=== PATIENT | female | born 1965 | race Caucasian/White ===

== ENCOUNTER 2021-01-08 11:48 | Inpatient (IN) | payer MEDICAID, SELFPAY ==
[2021-01-08] VITALS (15 sets, daily range): BP systolic 127–161; BP diastolic 72–93; PULSE 102–124; RESP 16–24; TEMP 36.2–37.6; O2SAT 93–98; BMI 22.4; BMI 22.8
--- NOTE | 2021-01-08 12:56 | CT_ITS ---
WS: [id number] CT ABDOMEN PELVIS TECHNIQUE: Contrast-enhanced CT of the abdomen and pelvis with coronal and sagittal reformatted image s. CLINICAL INFORMATION: anemia, hepatomegaly COMPARISON: None. DLP: 973.[address] scans at [facility] use at least one of these dose optimization techniques: automat ed exposure control; mA and/or kV adjustment per patient size (includes targeted exams where dose is matched to clinical indication); or iterative reconstruction. FINDINGS: Hepatomegaly. Innumerable heterogeneously enhancing metastatic lesions within both hepatic lobes. Mor e confluent lesions in the right hepatic lobe the largest measuring approximately 9.5 x 6.6 cm. Dorota l splenic vein. Proximal portal veins appear patent. Lymphadenopathy in the torito hepatis. A few of t he hepatic lesions demonstrate a few areas of calcification. Suspected metastatic lesions in both lung bases the largest in the left lower lobe measuring 8 mm. No rmal spleen. Normal GE junction. Pancreas appears normal. Normal caliber abdominal aorta. Aortic calc ification. Thickening of the left adrenal gland. Right adrenal gland appears normal. Normal renal par enchymal enhancement. No hydronephrosis. Dense sigmoid constipation. Constipation in the left splenic flexure and descending colon. Evidence o f prior subtotal colectomy. No evidence of high-grade small or large bowel obstruction. A few small p eriaortic lymph nodes. No pelvic or inguinal lymphadenopathy. Small amount of free fluid in the right lower pelvis. CT/CT abdomen pelvis w con* [id number] IMPRESSION: 1. Innumerable previously enhancing lesions in both hepatic lobes most consist ent with metastatic disease. Largest lesion right hepatic lobe measures approxi mately 9.5 x 6.6 cm. 2. Hepatomegaly. 3. Suspected metastatic nodules in both lung bases the largest measuring 8 mm left lower lobe laterally. 4. Prominent lymph nodes in the torito hepatis. 5. Thickening of the left adrenal gland. 6. Splenic flexure and left descending colon/sigmoid colon constipation. 7. Prior hysterectomy. 8. Evidence of prior subtotal colectomy. Notified Daneil Welch MD [facility] [place] at 01/08/2021 1:54 PM.
--- NOTE | 2021-01-08 12:57 | W.ED.RECABL ---
HPI - Recheck/Abnormal Lab/Rx General: Chief Complaint: Recheck/Abnormal Lab/Rx Stated Complaint: anemic, wanting blood transfusion Time Seen by Provider: 01/08/21 12:06 Source: patient, RN notes reviewed and old records reviewed Mode of arrival: ambulatory Limitations: no limitations History of Present Illness: HPI narrative: Patient is a 55-year-old female who does not obtain regular health care and presents to the emergency department with complaints of severe weakness, dyspnea on exertion, lack of energy. She was seen at [facility] 5 days ago and was diagnosed with anemia and apparently liver cancer at that time. Her hemoglobin was said to be low and wanted to transfuse her but the patient left AGAINST MEDICAL ADVICE because she said she had things to do. She went to her primary care provider today who advised that she come to the emergency department to be evaluated. The patient does not have a known history of hepatitis C or hepatitis B, however she has not been checked for these either. She said she used to drink a lot of alcohol when she was younger but she does not any longer. complaint: abnormal lab Initial visit (ago): day(s) (5) Associated symptoms: shortness of breath Review of Systems General: Reports: 10 or more systems reviewed and unremarkable except in HPI and below PFSH ED PFSH: Surgical History (Updated 01/08/21 @ 22:41 by Abdirahman Lima MD) History of appendectomy History of hysterectomy Social History (Reviewed 01/08/21 @ 12:59 by Daniel Welch MD, [facility] [place]) Smoking and tobacco status: current every day smoker Physical Exam Const: COMMON NORMALS: no acute distress, average body habitus, patient oriented x3, no limitations, healthy appearing, alert and well nourished HENMT: COMMON NORMALS: normocephalic, atraumatic and moist oral mucous membranes HEAD & SCALP: normocephalic and atraumatic Eye: COMMON NORMALS: Equal, round and reactive pupils present, EOMs intact bilaterally and conjunctivae normal CONJUNCTIVA: Yes conjunctivae normal PUPIL: Yes Equal, round and reactive pupils present Neck/C-Spine: COMMON NORMALS: no meningeal signs and no JVD Resp: COMMON NORMALS: normal respiratory effort, No retractions, No use of accessory muscles, clear to auscultation bilaterally and percussion normal AUSCULTATION: clear to auscultation bilaterally PERCUSSION: percussion normal Cardio: COMMON NORMALS: no JVD, regular rhythm, S1 normal heart sound present, S2 normal heart sound present, No gallops present (Cardio), No clicks present (Cardio), No rub (Cardio) and Peripheral pulses 2+ throughout RATE: tachycardic RHYTHM: regular rhythm HEART SOUNDS: S1 normal heart sound present, S2 normal heart sound present and Murmur heart sound present PERIPHERAL PULSES: Peripheral pulses 2+ throughout GI: COMMON NORMALS: Soft to palpation, non-tender, no masses and no bruits INSPECTION: Yes abdominal distension PALPATION: Yes Soft to palpation and Yes Hepatomegaly present Extremity: COMMON NORMALS: normal to inspection, full ROM, capillary refill normal and no calf tenderness GENERAL: Yes edema Neuro: COMMON NORMALS: patient oriented x3 SENSORIUM/ORIENTATION: Yes alert MENINGEAL SIGNS: Yes no meningeal signs Skin: COMMON NORMALS: no rashes or lesions noted, no wounds, turgor normal, no jaundice, no petechiae and no mottling GENERAL SKIN EXAM: no rashes or lesions noted and turgor normal Course Reevaluation(s): Reevaluation #1: Discussed her lab and imaging findings with her. Explained that she appears to be anemic heart failure. CT scan is also consistent with liver metastasis. She said she had a colectomy because they found a tumor on her colon. This was about 10 years ago and she has not had any follow-up colonoscopy. She is admitted to the hospital for further evaluation and management. She was started on blood transfusion while in the emergency department. She voiced understanding and is in agreement with the plan. Time: 14:20 Consultations: Consultation #1: Discussed the patient with Dr. Lima, hospitalist and he kindly accepted the patient to his service. Time: 14:17 Vital Signs: Vital signs: Vital Signs Temperature 98.8 F 01/08/21 22:46 Pulse Rate 107 H 01/08/21 22:46 Respiratory Rate 19 H 01/08/21 22:46 Blood Pressure 153/83 01/08/21 22:46 Pulse Oximetry 94 01/08/21 22:46 MDM - Recheck/Abnormal Lab/Rx MDM Narrative: Medical decision making narrative: 55-year-old female patient who is noncompliant with doctors visits presents to the emergency department with severe weakness, anemia, and she had severe anemia with hemoglobin of 5.1. She also appeared to be in anemic heart failure. CT scan of her abdomen also shows liver metastasis. Patient will be admitted to the hospital. She was started on blood transfusion while in the emergency department. Lab Data: Labs: Lab Results 01/08/21 01/08/21 01/08/21 Range/Units 11:13 13:00 13:00 WBC 19.6 H (4.0-10.0) 10^3/ uL RBC 2.67 L (4.1-5.3) 10^6/u L Hgb 5.1 L* (11.5-15.3) g/dL Hct 20.1 L* (37.0-47.0) % MCV 75.3 L (81-99) fL MCH 19.1 L (28.0-34.0) pg MCHC 25.4 L (30.0-36.0) g/dL RDW 19.4 H (12.1-15.1) % Plt Count 963 H (130-400) 10^3/c mm MPV 8.4 (7.4-10.4) fL Neut % (Auto) 83.0 % Lymph % (Auto) 8.1 % [place] % (Auto) 7.6 % Eos % (Auto) 0.1 % Baso % (Auto) 0.3 % Neut # (Auto) 16.29 H (1.8-7.7) 10^3/u L Lymph # (Auto) 1.6 (0.8-4.8) 10^3/u L [place] # (Auto) 1.5 H (0.2-0.9) 10^3/u L Eos # (Auto) 0.0 (0.0-0.8) 10^3/u L Baso # (Auto) 0.1 (0.0-0.1) 10^3/u L Nucleated RBC % (a uto) 0.3 % Nucleated RBCs # 0.1 /100WBC Sodium 127 L (136-145) mmol/L Potassium 4.4 (3.5-5.1) mmol/L Chloride 90 L (98-107) mmol/L Carbon Dioxide 24 (22-29) mmol/L Anion Gap 17.4 (5-19) BUN 15 (6-20) mg/dL Creatinine 0.4 L (0.5-0.9) mg/dL GFR Calculation 165.1 H (90-130) mL/min Glucose 116 H (65-115) mg/dL Calculated Osmolal ity 266 L (285-295) mOsm/k g Lactate (0.5-2.2) mmol/L Calcium 8.7 (8.5-10.5) mg/dL Total Bilirubin 0.3 (0.15-1.2) mg/dL AST 24 (0-32) U/L ALT 10 (0-33) U/L Alkaline Phosphata se 419 H (35-105) IU/L C-Reactive Protein 94.1 H (0.0-4.9) mg/L NT-Pro-B Natriuret Pep 4393 H (0-125) pg/mL Total Protein 6.1 L (6.6-8.7) g/dL Albumin 3.3 L (3.5-5.2) g/dL Globulin 2.8 (1.3-4.6) g/dL Lipase 14 (13-60) U/L Urine Color (Yellow) Urine Appearance (CLEAR) Urine pH (5-7) Ur Specific Gravit y (1.005-1.030) Urine Protein (Negative) Urine Glucose (UA) (Normal) Urine Ketones (Negative) Urine Blood (Negative) Urine Nitrate (Negative) Urine Bilirubin (Negative) Urine Urobilinogen (Negative) mg/dL Ur Leukocyte Reshma ase (Negative) Hepatitis A IgM Ab (Nonreactive) Hep Bs Antigen (Nonreactive) Hep Bs Antibody (11.5-1000) Hep B Core Total A b (Nonreactive) Hepatitis C Antibo dy (Nonreactive) Blood Type Rho(D) Type Antibody Screen Crossmatch 01/08/21 01/08/21 01/08/21 Range/Units 13:00 13:00 13:15 WBC (4.0-10.0) 10^3/ uL RBC (4.1-5.3) 10^6/u L Hgb (11.5-15.3) g/dL Hct (37.0-47.0) % MCV (81-99) fL MCH (28.0-34.0) pg MCHC (30.0-36.0) g/dL RDW (12.1-15.1) % Plt Count (130-400) 10^3/c mm MPV (7.4-10.4) fL Neut % (Auto) % Lymph % (Auto) % [place] % (Auto) % Eos % (Auto) % Baso % (Auto) % Neut # (Auto) (1.8-7.7) 10^3/u L Lymph # (Auto) (0.8-4.8) 10^3/u L [place] # (Auto) (0.2-0.9) 10^3/u L Eos # (Auto) (0.0-0.8) 10^3/u L Baso # (Auto) (0.0-0.1) 10^3/u L Nucleated RBC % (a uto) % Nucleated RBCs # /100WBC Sodium (136-145) mmol/L Potassium (3.5-5.1) mmol/L Chloride (98-107) mmol/L Carbon Dioxide (22-29) mmol/L Anion Gap (5-19) BUN (6-20) mg/dL Creatinine (0.5-0.9) mg/dL GFR Calculation (90-130) mL/min Glucose (65-115) mg/dL Calculated Osmolal ity (285-295) mOsm/k g Lactate 1.9 (0.5-2.2) mmol/L Calcium (8.5-10.5) mg/dL Total Bilirubin (0.15-1.2) mg/dL AST (0-32) U/L ALT (0-33) U/L Alkaline Phosphata se (35-105) IU/L C-Reactive Protein (0.0-4.9) mg/L NT-Pro-B Natriuret Pep (0-125) pg/mL Total Protein (6.6-8.7) g/dL Albumin (3.5-5.2) g/dL Globulin (1.3-4.6) g/dL Lipase (13-60) U/L Urine Color Yellow (Yellow) Urine Appearance Clear (CLEAR) Urine pH 5 (5-7) Ur Specific Gravit y 1.015 (1.005-1.030) Urine Protein Neg (Negative) Urine Glucose (UA) Norm (Normal) Urine Ketones Negative (Negative) Urine Blood Neg (Negative) Urine Nitrate Negative (Negative) Urine Bilirubin Neg (Negative) Urine Urobilinogen 1 H (Negative) mg/dL Ur Leukocyte Reshma ase Negative (Negative) Hepatitis A IgM Ab Non-reactive (Nonreactive) Hep Bs Antigen Non-reactive (Nonreactive) Hep Bs Antibody 3.5 L (11.5-1000) Hep B Core Total A b Non-reactive (Nonreactive) Hepatitis C Antibo dy Non-reactive (Nonreactive) Blood Type Rho(D) Type Antibody Screen Crossmatch 01/08/21 Range/Units 13:29 WBC (4.0-10.0) 10^3/ uL RBC (4.1-5.3) 10^6/u L Hgb (11.5-15.3) g/dL Hct (37.0-47.0) % MCV (81-99) fL MCH (28.0-34.0) pg MCHC (30.0-36.0) g/dL RDW (12.1-15.1) % Plt Count (130-400) 10^3/c mm MPV (7.4-10.4) fL Neut % (Auto) % Lymph % (Auto) % [place] % (Auto) % Eos % (Auto) % Baso % (Auto) % Neut # (Auto) (1.8-7.7) 10^3/u L Lymph # (Auto) (0.8-4.8) 10^3/u L [place] # (Auto) (0.2-0.9) 10^3/u L Eos # (Auto) (0.0-0.8) 10^3/u L Baso # (Auto) (0.0-0.1) 10^3/u L Nucleated RBC % (a uto) % Nucleated RBCs # /100WBC Sodium (136-145) mmol/L Potassium (3.5-5.1) mmol/L Chloride (98-107) mmol/L Carbon Dioxide (22-29) mmol/L Anion Gap (5-19) BUN (6-20) mg/dL Creatinine (0.5-0.9) mg/dL GFR Calculation (90-130) mL/min Glucose (65-115) mg/dL Calculated Osmolal ity (285-295) mOsm/k g Lactate (0.5-2.2) mmol/L Calcium (8.5-10.5) mg/dL Total Bilirubin (0.15-1.2) mg/dL AST (0-32) U/L ALT (0-33) U/L Alkaline Phosphata se (35-105) IU/L C-Reactive Protein (0.0-4.9) mg/L NT-Pro-B Natriuret Pep (0-125) pg/mL Total Protein (6.6-8.7) g/dL Albumin (3.5-5.2) g/dL Globulin (1.3-4.6) g/dL Lipase (13-60) U/L Urine Color (Yellow) Urine Appearance (CLEAR) Urine pH (5-7) Ur Specific Gravit y (1.005-1.030) Urine Protein (Negative) Urine Glucose (UA) (Normal) Urine Ketones (Negative) Urine Blood (Negative) Urine Nitrate (Negative) Urine Bilirubin (Negative) Urine Urobilinogen (Negative) mg/dL Ur Leukocyte Reshma ase (Negative) Hepatitis A IgM Ab (Nonreactive) Hep Bs Antigen (Nonreactive) Hep Bs Antibody (11.5-1000) Hep B Core Total A b (Nonreactive) Hepatitis C Antibo dy (Nonreactive) Blood Type O Positive Rho(D) Type Positive / 4+ Antibody Screen Negative Crossmatch See Detail Imaging Data^: CT Abd/Pel: Attestation: I personally reviewed and interpreted this imaging study as follows: Radiologist's impression: [address] [id number] Scan ReportSigned Patient: Edith Medina #: [id number]: [id number]#:[id number]/Sex: 55 / FADM Date: 01/08/21Loc: ERRoom/Bed:Attending Dr: Ordering Provider/Ordering MD: Daniel eWlch MD, [facility] [place] Date of Service: 01/08/21 Procedure(s): CT abdomen pelvis w con* [id number] Accession Number(s): [id number] Report Number: [id number] WS: [id number] CT ABDOMEN PELVIS TECHNIQUE: Contrast-enhanced CT of the abdomen and pelvis with coronal and sagittal reformatted images. CLINICAL INFORMATION: anemia, hepatomegaly COMPARISON: None. DLP: 973.[address] scans at [facility] use at least one of these dose optimization techniques: automated exposure control; mA and/or kV adjustment per patient size (includes targeted exams where dose is matched to clinical indication); or iterative reconstruction. FINDINGS: Hepatomegaly. Innumerable heterogeneously enhancing metastatic lesions within both hepatic lobes. More confluent lesions in the right hepatic lobe the largest measuring approximately 9.5 x 6.6 cm. Normal splenic vein. Proximal portal veins appear patent. Lymphadenopathy in the torito hepatis. A few of the hepatic lesions demonstrate a few areas of calcification. Suspected metastatic lesions in both lung bases the largest in the left lower lobe measuring 8 mm. Normal spleen. Normal GE junction. Pancreas appears normal. Normal caliber abdominal aorta. Aortic calcification. Thickening of the left adrenal gland. Right adrenal gland appears normal. Normal renal parenchymal enhancement. No hydronephrosis. Dense sigmoid constipation. Constipation in the left splenic flexure and descending colon. Evidence of prior subtotal colectomy. No evidence of high-grade small or large bowel obstruction. A few small periaortic lymph nodes. No pelvic or inguinal lymphadenopathy. Small amount of free fluid in the right lower pelvis. CT/CT abdomen pelvis w con* [id number] IMPRESSION: 1. Innumerable previously enhancing lesions in both hepatic lobes most consistent with metastatic disease. Largest lesion right hepatic lobe measures approximately 9.5 x 6.6 cm. 2. Hepatomegaly. 3. Suspected metastatic nodules in both lung bases the largest measuring 8 mm left lower lobe laterally. 4. Prominent lymph nodes in the torito hepatis. 5. Thickening of the left adrenal gland. 6. Splenic flexure and left descending colon/sigmoid colon constipation. 7. Prior hysterectomy. 8. Evidence of prior subtotal colectomy. Notified Daniel Welch MD [facility] [place] at 01/08/2021 1:54 PM. Dictated By:Yifan Powell MD Critical Care Time Critical Care Time: Critical Care Time: Yes Total Critical Care Time: 45 Attestation: This case had a high probability of a clinically significant, sudden, or life threatening deterioration of this patient's condition which required my full and direct attention, intervention and personal management. Discharge Plan Discharge Patient Disposition: Admitted As Inpatient Admit Provider: Abdirahman Lima Clinical Impression: Heart failure, Anemia, Liver metastasis Condition: Stable Coding Level of Care Code ED Herbicide Service Sales Representative for Chg Fwd Exam Comprehensive
[2021-01-08 13:09] LABS: Basophils # 0.1 10^3/uL (0.0-0.1); Basophils % 0.3 %; Eosinophils % 0.1 %; Lymphocytes # 1.6 10^3/uL (0.8-4.8); Lymphocytes % 8.1 %; Mean Corpuscular HGB Conc 25.4 g/dL (30.0-36.0); Mean Corpuscular Hemoglobin 19.1 pg (28.0-34.0); Mean Corpuscular Volume 75.3 fL (81-99); Mean Platelet Volume 8.4 fL (7.4-10.4); Monocytes # 1.5 10^3/uL (0.2-0.9); Monocytes % 7.6 %; Neutrophils # 16.29 10^3/uL (1.8-7.7); Nucleated Red Blood Cells # 0.1 /100WBC; Nucleated Red Blood Cells % 0.3 %; Platelet Count 963 10^3/cmm (130-400); Red Blood Count 2.67 10^6/uL (4.1-5.3); Red Cell Distribution Width 19.4 % (12.1-15.1); White Blood Count 19.6 10^3/uL (4.0-10.0)
--- NOTE | 2021-01-08 13:16 | PM.HP ---
Providers/Chief Complaint Admitting Physician: Abdirahman Lima Primary Care Provider: Luna Arevalo MD Chief Complaint: anemic, wanting blood transfusion History of Present Illness 55 y/o with past medical history of tobacco abuse, who presented to the ER with generalized weakness. This has been progressively worsening over the past week. Upon arrival patient was noted have a WBC of 19.6, hemoglobin of 5.1, hematocrit of 20.1 and platelet count of 963.Sodium 127, potassium 4.4, chloride 90, bicarb 24, BUN 15 and creatinine is 0.4. Lactic acid was 1.9. Calcium was 8.7. Alkaline phosphatase was elevated at 419. AST of 24, ALT of 10. CRP of 94.1. ProBNP was elevated at 4393. Lipase of 14.Hepatitis panel was found to be negative. Urinalysis did not show any evidence of acute infection. Patient denied having any recent dark stools. No prior bloody emesis. Denies unexplained weight loss. No prior history of malignancy. Imaging studies on arrivalIncluded CT abdomen pelvis which showed innumerable previously enhancing lesions in both hepatic lobes consistent for metastatic disease. Large lesion of the right hepatic lobe measured around 9.5 x 6.6 cm. Also noted to have suspected metastatic nodules in both lungs measuring up to 8 mm. Incidentally noted to have prior partial colectomy which patient was not aware of why. Started on transfusion and admitted to hospital. Discussed findings of CT and need for biopsy however patient refused. Stated she is only wanting transfusion and would follow up outpatient for work up. Review of Systems General: Reports: 10 or more systems reviewed and unremarkable except in HPI and below Medications/Allergies Home Medications Medication Instructions Recorded Confirmed Last Taken Type tramadol 50 mg tablet 50 mg PO Q6H PRN #4 tab 01/07/21 01/08/21 01/08/21 07:00 Rx ibuprofen 400 mg PO PRN 01/08/21 01/08/21 Unknown History Allergies Allergy/AdvReac Type Severity Reaction Status Date / Time No Known Allergies Allergy Verified 01/08/21 13:53 PFSH Acute PFSH: Surgical History (Updated 01/08/21 @ 22:41 by Abdirahman Lima MD) History of appendectomy History of hysterectomy Social History (Reviewed 01/08/21 @ 12:59 by Daniel Welch MD, [facility] [place]) Smoking and tobacco status: current every day smoker Vitals/I&O/Wt Last Vital Signs Temp 99.7 F H 01/08/21 20:31 Pulse 105 H 01/08/21 20:31 Resp 20 H 01/08/21 20:31 BP 151/84 01/08/21 20:31 Pulse Ox 94 01/08/21 19:20 01/08/21 01/08/21 01/08/21 06:59 14:59 22:59 Intake Total 350 / 350 Balance 350 / 350 Weight last 48 hrs Weight 56.699 kg Weight 55.792 kg Physical Exam Narrative: EXAM NARRATIVE: Alert awake and oriented x3 HEENT-grossly unremarkable CVS-regular rate rhythm Chest- nonlabored respiration Abdomen -nondistended Extremities-no edema Data : 01/08/21 13:00 01/08/21 13:00 A&P Assessment and plan (1) Anemia: Status: Acute Qualifiers: Anemia type: unspecified type Qualified Code(s): D64.9 - Anemia, unspecified (2) Liver metastasis: Status: Acute Additional A&P Information Symptomatic Anemia Hemoglobin 5.1 2 units of PRBCs transfused. Repeat H&H q.6 hours. Stool guaiac Protonix 40 mg b.i.d. Transfuse for hemoglobin less than 7 Metastatic disease with hepatic lesion Additionally with pulmonary nodules Will need biopsy Refused work up in patient Follow up appt with oncology scheduled Leukocytosis WBC 19.6 Afebrile No evidence of infectious process Possibly malignancy related Procalcitonin in am Will monitor off abx. Hyponatremia Suspected SIADH Repeat BMP in am GI ppx Protonix 40 mg BID DVT ppx SCDs only Attestations Medical Necessity Statement*: patient will likely require over 2 midnight stay in hospital for evaluation treatment of severe anemia and new metastatic disease. Time Spent in Patient Care: Greater than 35 minutes (>than 50% of time spent in counselling and/or direct pt care on unit). Coding Level of Care Code Acute Gymnasium Teacher for Chg Fwd Diagnoses Anemia D64.9 Anemia type: unspecified type Liver metastasis C78.7
[2021-01-08 13:23] LABS: Hematocrit 20.1 % (37.0-47.0); Hemoglobin 5.1 g/dL (11.5-15.3)
[2021-01-08] MEDS: iohexol 300 mg/mL 100 mL Btl IV (13:28)
[2021-01-08 13:29] LABS: Add Urine Microscopic? NO; Charge for UA Resulting for Rev
[2021-01-08 13:36] LABS: Alanine Aminotransferase 10 U/L (0-33); Albumin Level 3.3 g/dL (3.5-5.2); Alkaline Phosphatase 419 IU/L (35-105); Anion Gap 17.4 (5-19); Aspartate Amino Transferase 24 U/L (0-32); Blood Urea Nitrogen 15 mg/dL (6-20); C Reactive Protein 94.1 mg/L (0.0-4.9); Calcium 8.7 mg/dL (8.5-10.5); Carbon Dioxide 24 mmol/L (22-29); Chloride 90 mmol/L (98-107); Creatinine Clr Calc Pharmacy 129.8508; Globulin 2.8 g/dL (1.3-4.6); Glomerular Filtration Rate 165.1 mL/min (90-130); Glucose 116 mg/dL (65-115); Lipase 14 U/L (13-60); Osmolality Calculated 266 mOsm/kg (285-295); Potassium 4.4 mmol/L (3.5-5.1); Sodium 127 mmol/L (136-145); Total Bilirubin 0.3 mg/dL (0.15-1.2); Total Protein 6.1 g/dL (6.6-8.7)
[2021-01-08 13:37] LABS: Lactate (Lactic Acid level) 1.9 mmol/L (0.5-2.2)
[2021-01-08 13:40] LABS: Bilirubin Urine Neg (Negative); Blood Urine Neg (Negative); Glucose Urine UA Norm (Normal); Ketones Urine Negative (Negative); Leukocyte Esterase Urine Negative (Negative); Nitrate Urine Negative (Negative); Protein Urine Neg (Negative); Specific Gravity, Urine 1.015 (1.005-1.030); Urine Appearance Clear (CLEAR); Urine Color Yellow (Yellow); Urobilinogen Urine 1 mg/dL (Negative); pH Urine 5 (5-7)
[2021-01-08 13:51] LABS: Hepatitis A Antibody IgM Non-Reactive (Nonreactive); Hepatitis B Core AB, Total Non-Reactive (Nonreactive); Hepatitis B Surface AB 3.5 (11.5-1000); Hepatitis B Surface Antigen Non-Reactive (Nonreactive); Hepatitis C Virus Antibody Non-Reactive (Nonreactive)
[2021-01-08 14:57] LABS: NT Pro B Type Natriuretic Pept 4393 pg/mL (0-125)
--- NOTE | 2021-01-08 18:30 | PC.NURSE ---
report called to evin YIN
[2021-01-08] MEDS: sodium chloride 0.9% (100 ml) 100 ML 125 ML (23:07)
[2021-01-08] MEDS: pantoprazole 40 mg SDV IVP (23:23)
[2021-01-09] VITALS: BP 166/89; PULSE 103; RESP 18; TEMP 37.1; O2SAT 94
[2021-01-09] MEDS: nicotine 21 mg Patch 1 PATCH TRANSDERMA (00:38)
[2021-01-09 00:40] LABS: Hematocrit 26.9 % (37.0-47.0); Hemoglobin 7.5 g/dL (11.5-15.3)
[2021-01-09 04:05] VITALS: BP 163/94; PULSE 99; RESP 16; TEMP 36.9; O2SAT 94
[2021-01-09 07:22] VITALS: BP 163/94; PULSE 100; RESP 16; TEMP 36.9; O2SAT 99
--- NOTE | 2021-01-09 07:46 | PC.NURSE ---
Patient was at the desk demanding to leave the hospital AMA. I spoke with her in length about the state of her health and the risks of leaving the hospital AMA. I called and spoke with Dr. Lima and informed him of this. He states that she was adamant yesterday she was going to leave after her blood transfusion was complete and agreed to allow her to leave AMA after discussing the risks and benefits. I again discussed with her at length the risks of leaving AMA and she states she can't afford to stay another night. I offered to have a sales representative marine supplies from patient accounts to come and speak with her about her bill and she declines at this time and continues to adamantly request to leave AMA. I provided her with the AMA paper and read it verbatim and she signed it. IV was removed and was intact. I instructed patient to present to the ED if she experienced further issues. She verbalizes understanding. I informed Dr. Lima of d/c.
[2021-01-09 07:58] VITALS: BP 163/94; PULSE 100; RESP 16; TEMP 36.9; O2SAT 99
--- NOTE | 2021-01-09 15:53 | PM.DCS ---
Discharge Providers Date of Admission: 01/08/21 14:35 Date of Discharge: January 09, 2021 Attending Provider at Admission: Abdirahman Lima Attending Provider at Discharge: Abdirahman Lima Primary Care Provider: Luna Arevalo MD Diagnoses at Discharge Discharge Diagnosis (1) Anemia: Status: Acute Qualifiers: Anemia type: unspecified type Qualified Code(s): D64.9 - Anemia, unspecified (2) Liver metastasis: Status: Acute Reason for Visit Reason for Visit: anemic, wanting blood transfusion Hospital Course Hospital Course 55 y/o with past medical history of tobacco abuse, who presented to the ER with generalized weakness. This has been progressively worsening over the past week. Upon arrival patient was noted have a WBC of 19.6, hemoglobin of 5.1, hematocrit of 20.1 and platelet count of 963.Sodium 127, potassium 4.4, chloride 90, bicarb 24, BUN 15 and creatinine is 0.4. Lactic acid was 1.9. Calcium was 8.7. Alkaline phosphatase was elevated at 419. AST of 24, ALT of 10. CRP of 94.1. ProBNP was elevated at 4393. Lipase of 14.Hepatitis panel was found to be negative. Urinalysis did not show any evidence of acute infection. Patient denied having any recent dark stools. No prior bloody emesis. Denies unexplained weight loss. No prior history of malignancy. Imaging studies on arrivalIncluded CT abdomen pelvis which showed innumerable previously enhancing lesions in both hepatic lobes consistent for metastatic disease. Large lesion of the right hepatic lobe measured around 9.5 x 6.6 cm. Also noted to have suspected metastatic nodules in both lungs measuring up to 8 mm. Incidentally noted to have prior partial colectomy which patient was not aware of why. Started on transfusion and admitted to hospital. Discussed findings of CT and need for biopsy however patient refused. Stated she is only wanting transfusion and would follow up outpatient for work up.On January 09 patient left against medical advice. Refused any further workup. Verbalized understanding of risk of worsening and potentially . Physical Exam Narrative: EXAM NARRATIVE: Alert awake and oriented x3 HEENT-grossly unremarkable CVS-regular rate rhythm Chest- nonlabored respiration Abdomen -nondistended Extremities-no edema Discharge Data Data Completed and Pending: Completed Studies During Hospitalization Category Date Time Status CT abdomen pelvis w con* [id number] Stat Cat Scan 01/08/21 12:56 Completed Vitals: Last Vital Signs Temp 98.4 F 01/09/21 07:58 Pulse 100 01/09/21 07:58 Resp 16 01/09/21 07:58 BP 163/94 01/09/21 07:58 Pulse Ox 99 01/09/21 07:58 Discharge Plan Discharge Patient Disposition: Home Condition: Stable Prescriptions: No Action Protonix 40 mg tablet,delayed release (DR/EC) 40 mg PO DAILY Qty: 30 RF: 0 vancomycin 125 mg capsule 125 mg PO QID 10 Days Qty: 40 RF: 0 hydrocodone-acetaminophen 5-325 mg tablet 1 tab PO Q4H PRN (Reason: pain) Qty: 20 RF: 0 Referrals: Luna Arevalo MD [Primary Care Provider] - Patient Instructions: Opioid Safety Discharge Attestations Time Spent in Discharge Care*: greater than 30 min Specific Discharge Activities: Other discharge activites (optional): AMA Quality Metrics Clinical Quality Measures During this hospital stay, did patient experience: None Coding Level of Care Code Acute Chg FW DC note Diagnoses Anemia D64.9 Anemia type: unspecified type Liver metastasis C78.7
--- NOTE | 2021-01-13 08:33 | PC.RESP ---
SMOKING CESSATION INFORMATION SENT TO PATIENT.
== END 2021-01-09 07:59 | disposition left against medical advice (07) | DRG 812 ==
LOC: ER 15:58 → MEDSURG 17:37
PROVIDERS: Admitting Provider Hospitalist; Emergency Provider Family Medicine; PCP Family Medicine; Visit Provider Hospitalist
DX: D64.9 Anemia, unspecified (principal); C78.7 Secondary malignant neoplasm of liver and intrahepatic bile duct; E87.1 Hypo-osmolality and hyponatremia; R91.1 Solitary pulmonary nodule; I50.9 Heart failure, unspecified; D72.829 Elevated white blood cell count, unspecified; F17.200 Nicotine dependence, unspecified, uncomplicated; Z90.49 Acquired absence of other specified parts of digestive tract; Z90.710 Acquired absence of both cervix and uterus; Z53.29 Procedure and treatment not carried out because of patient's decision for other reasons
CPT/HCPCS: 36415; 36430; 74177; 80053; 81003; 83605; 83690; 83880; 85014; 85018; 85025; 86140; 86705; 86706; 86709; 86803; 86850; 86900; 86920; 87340; 99285; C9113; P9016; Q9967

== ENCOUNTER 2021-01-12 02:01 | Inpatient (IN) | payer MEDICAID, SELFPAY ==
[2021-01-12] VITALS (16 sets, daily range): BP systolic 99–138; BP diastolic 66–85; PULSE 98–113; RESP 18–25; TEMP 36.2–37.3; O2SAT 90–100; BMI 23.0
[2021-01-12 02:23] LABS: Basophils # 0.1 10^3/uL (0.0-0.1); Basophils % 0.4 %; Eosinophils % 0.3 %; Hematocrit 31.9 % (37.0-47.0); Lymphocytes % 7.7 %; Mean Corpuscular HGB Conc 28.2 g/dL (30.0-36.0); Mean Corpuscular Hemoglobin 21.8 pg (28.0-34.0); Mean Corpuscular Volume 77.4 fl (81-99); Mean Platelet Volume 8.1 fL (7.4-10.4); Monocytes # 0.9 10^3/uL (0.2-0.9); Monocytes % 7.2 %; Neutrophils # 10.95 10^3/uL (1.8-7.7); Neutrophils % 83.8 %; Nucleated Red Blood Cells % 0 %; Platelet Count 905 10^3/cmm (130-400); Red Blood Count 4.12 10^6/uL (4.1-5.3); White Blood Count 13.1 10^3/uL (4.0-10.0)
[2021-01-12] MEDS: ondansetron 2 mg/ML SDV 2 mL 4 MG IVP ×2 (02:34→12:12)
[2021-01-12] MEDS: HYDROmorphone 1 mg/mL INJ 1 mL IVP ×3 (02:34→06:57)
[2021-01-12] MEDS: sodium chloride 0.9% 1,000 ML 999 ML IV (02:36)
[2021-01-12 02:39] LABS: INR 1.06 (0.8-1.2)
[2021-01-12 02:40] LABS: Partial Thromboplastin Time 36.2 SECONDS (23.9-36.7)
[2021-01-12 02:43] LABS: Alanine Aminotransferase 19 U/L (0-33); Albumin Level 3.1 g/dL (3.5-5.2); Alcohol Level 25 mg/dL (0-10); Alkaline Phosphatase 417 IU/L (35-105); Anion Gap 18.1 (5-19); Aspartate Amino Transferase 42 U/L (0-32); Blood Urea Nitrogen 13 mg/dL (6-20); Calcium 8.9 mg/dL (8.5-10.5); Carbon Dioxide 23 mmol/L (22-29); Chloride 92 mmol/L (98-107); Globulin 3.5 g/dL (1.3-4.6); Glomerular Filtration Rate 165.1 mL/min (90-130); Glucose 91 mg/dL (65-115); Lipase 11 U/L (13-60); Magnesium 1.7 mg/dL (1.7-2.3); Osmolality Calculated 270 mOsm/kg (285-295); Potassium 3.1 mmol/L (3.5-5.1); Sodium 130 mmol/L (136-145); Total Bilirubin 0.4 mg/dL (0.15-1.2); Total Protein 6.6 g/dL (6.6-8.7)
[2021-01-12 02:44] LABS: Lactate (Lactic Acid level) 1.9 mmol/L (0.5-2.2)
[2021-01-12 02:50] LABS: Procalcitonin 0.47 ng/mL (0-0.5)
--- NOTE | 2021-01-12 02:56 | CTR_ITS ---
PROCEDURE INFORMATION: Exam: CT Abdomen And Pelvis With Contrast Exam date and time: 01/12/2021 2:56 AM Age: 55 years old Clinical indication: Abdominal pain; Localized; Prior surgery; Surgery date: 6+ months; Surgery type: Byst, appy; Patient HX: HX of liver mets C/O lower abd/pelvic pain w n/v/d; Additional info: Lower abd pain TECHNIQUE: Imaging protocol: Computed tomography of the abdomen and pelvis with contrast. Radiation optimization: All CT scans at this facility use at least one of these dose optimization techniques: automated exposure control; mA and/or kV adjustment per patient size (includes targeted exams where dose is matched to clinical indication); or iterative reconstruction. Contrast material: OMNI 300; Contrast volume: 75 ml; Contrast route: INTRAVENOUS (IV); COMPARISON: CT abdomen pelvis w con* [id number] 01/08/2021 1:21 PM RADIATION DOSE METRICS: Total DLP (mGy-cm): 991.43 FINDINGS: Lungs: Stable 8 mm left lower lobe nodule. Stable 8 mm right lower lobe nodule. Stable 4 mm left lower lobe nodule. Liver: Stable diffuse metastatic disease to the liver. Gallbladder and bile ducts: Vicarious excretion of contrast in the gallbladder. Pancreas: Normal. No ductal dilation. Spleen: Normal. No splenomegaly. Adrenal glands: 2 x 2.9 cm left adrenal nodule is grossly stable and likely represents metastatic disease. Kidneys and ureters: Normal. No hydronephrosis. Stomach and bowel: There has been a right hemicolectomy. There is thickening of multiple loops of small bowel concerning for enteritis. There are few loops of gas and fluid-filled small bowel with a balanced amount of gas and fluid in the colon. Appendix: No evidence of appendicitis. Intraperitoneal space: There is a small amount of ascites. Vasculature: Unremarkable. No abdominal aortic aneurysm. Lymph nodes: Unremarkable. No enlarged lymph nodes. Urinary bladder: Unremarkable as visualized. Reproductive: Unremarkable as visualized. Bones/joints: Unremarkable. No acute fracture. Soft tissues: 5.6 x 2.8 cm soft tissue mass in the right side of the pelvis, previously 4.[address]/CT abdomen pelvis w con* [id number] IMPRESSION: 1. Ileus. 2. There is thickening of multiple loops of small bowel concerning for enteritis. 3. Stable bilateral lower lobe lung nodules. 4. There is a small amount of ascites. 5. Stable to minimal enlargement of metastatic deposit in the right side of the pelvis. 6. Stable diffuse metastatic disease to the liver. Radiation Dose CTDIVOL = (mGy): DLP = 991.43 (mGy-cm)
[2021-01-12] MEDS: iohexol 300 mg/mL 100 mL Btl IV (03:18)
--- NOTE | 2021-01-12 03:19 | W.ED.ABDPA2 ---
HPI - Abdominal Pain General: Chief Complaint: Abdominal Pain Stated Complaint: Stomach Ache Time Seen by Provider: 01/12/21 02:13 History of Present Illness: HPI narrative: 55-year-old female with a recent diagnosis of metastatic liver cancer. She presents with lower abdominal pain, diarrhea, and nausea. She denies any fever. She notes that she has had the symptoms on and off for the last several weeks, but they became much worse tonight, and constant. MD elicited complaint: abdominal pain Pertinent past history: other Onset (ago): hour(s) Pain Consistency: constant Location: Diffuse Quality: cramping and stabbing Radiation: none Migration to: no migration Exacerbating factors: movement Relieving factors: nothing Associated Symptoms: Reports anorexia, change in stool character and nausea; Denies constipation, dyspepsia, fever(s), hematuria and poor appetite Review of Systems Const: Denies: fever(s) Card: Denies: chest pain or palpitations Resp: Denies: dyspnea GI: Reports: nausea and change in stool character; Denies: constipation : Denies: hematuria PFSH ED PFSH: Surgical History (Updated 01/08/21 @ 22:41 by Abdirahman Lima MD) History of appendectomy History of hysterectomy Social History Smoking and tobacco status: current every day smoker Physical Exam Const: GENERAL APPEARANCE: cooperative and ill appearing Chest: COMMONS NORMALS: normal inspection of the chest Cardio: RATE: bradycardic GI: COMMON NORMALS: Normal to inspection, nondistended, normoactive bowel sounds present AUSCULTATION: Yes normoactive bowel sounds PALPATION: Yes Tenderness to palpation present (GI) Course Consultations: Consultation #1: caterina Vital Signs: Vital signs: Vital Signs Respiratory Rate 22 H 01/12/21 04:50 MDM - Abdominal Pain MDM Narrative: Medical decision making narrative: 55-year-old female with known significant metastatic burden to the liver. She presents with diffuse lower abdominal pain, and some diarrhea. She had 2 mg of Dilaudid, and 8 mg of Zofran with some relief, but incomplete relief. She was admitted recently for transfusion, and work-up of her metastatic disease, but chose to leave after her transfusion. Current hemoglobin is 9. White blood cell count is 13. She has significant thrombocytosis of 900. Her potassium is 3.1 and is repleted orally. CT shows significant enteritis, with ileus. There is mild increase in her metastatic disease in the liver. She will be admitted for further investigation and treatment. Lab Data: Labs: Lab Results 01/12/21 01/12/21 01/12/21 Range/Units 02:13 02:13 02:13 WBC 13.1 H (4.0-10.0) 10^3/ uL RBC 4.12 (4.1-5.3) 10^6/u L Hgb 9.0 L (11.5-15.3) g/dL Hct 31.9 L (37.0-47.0) % MCV 77.4 L (81-99) fl MCH 21.8 L (28.0-34.0) pg MCHC 28.2 L (30.0-36.0) g/dL RDW 21.0 H (12.1-15.1) % Plt Count 905 H (130-400) 10^3/c mm MPV 8.1 (7.4-10.4) fL Neut % (Auto) 83.8 % Lymph % (Auto) 7.7 % Dixon % (Auto) 7.2 % Eos % (Auto) 0.3 % Baso % (Auto) 0.4 % Neut # (Auto) 10.95 H (1.8-7.7) 10^3/u L Lymph # (Auto) 1.0 (0.8-4.8) 10^3/u L Dixon # (Auto) 0.9 (0.2-0.9) 10^3/u L Eos # (Auto) 0.0 (0.0-0.8) 10^3/u L Baso # (Auto) 0.1 (0.0-0.1) 10^3/u L Nucleated RBC % (a uto) 0 % Nucleated RBCs # 0.0 /100WBC PT (12.1-14.9) SECO NDS INR (0.8-1.2) APTT (23.9-36.7) SECO NDS Sodium 130 L (136-145) mmol/L Potassium 3.1 L (3.5-5.1) mmol/L Chloride 92 L (98-107) mmol/L Carbon Dioxide 23 (22-29) mmol/L Anion Gap 18.1 (5-19) BUN 13 (6-20) mg/dL Creatinine 0.4 L (0.5-0.9) mg/dL GFR Calculation 165.1 H (90-130) mL/min Glucose 91 (65-115) mg/dL Calculated Osmolal ity 270 L (285-295) mOsm/k g Lactate (0.5-2.2) mmol/L Calcium 8.9 (8.5-10.5) mg/dL Magnesium 1.7 (1.7-2.3) mg/dL Total Bilirubin 0.4 (0.15-1.2) mg/dL AST 42 H (0-32) U/L ALT 19 (0-33) U/L Alkaline Phosphata se 417 H (35-105) IU/L C-Reactive Protein 237.0 H (0.0-4.9) mg/L Total Protein 6.6 (6.6-8.7) g/dL Albumin 3.1 L (3.5-5.2) g/dL Globulin 3.5 (1.3-4.6) g/dL Lipase 11 L (13-60) U/L Procalcitonin 0.47 (0-0.5) ng/mL Ethyl Alcohol 25 H (0-10) mg/dL Blood Type O Positive Rho(D) Type Positive / 4+ Antibody Screen Negative 01/12/21 01/12/21 Range/Units 02:22 02:22 WBC (4.0-10.0) 10^3/ uL RBC (4.1-5.3) 10^6/u L Hgb (11.5-15.3) g/dL Hct (37.0-47.0) % MCV (81-99) fl MCH (28.0-34.0) pg MCHC (30.0-36.0) g/dL RDW (12.1-15.1) % Plt Count (130-400) 10^3/c mm MPV (7.4-10.4) fL Neut % (Auto) % Lymph % (Auto) % Dixon % (Auto) % Eos % (Auto) % Baso % (Auto) % Neut # (Auto) (1.8-7.7) 10^3/u L Lymph # (Auto) (0.8-4.8) 10^3/u L Dixon # (Auto) (0.2-0.9) 10^3/u L Eos # (Auto) (0.0-0.8) 10^3/u L Baso # (Auto) (0.0-0.1) 10^3/u L Nucleated RBC % (a uto) % Nucleated RBCs # /100WBC PT 14.10 (12.1-14.9) SECO NDS INR 1.06 (0.8-1.2) APTT 36.2 (23.9-36.7) SECO NDS Sodium (136-145) mmol/L Potassium (3.5-5.1) mmol/L Chloride (98-107) mmol/L Carbon Dioxide (22-29) mmol/L Anion Gap (5-19) BUN (6-20) mg/dL Creatinine (0.5-0.9) mg/dL GFR Calculation (90-130) mL/min Glucose (65-115) mg/dL Calculated Osmolal ity (285-295) mOsm/k g Lactate 1.9 (0.5-2.2) mmol/L Calcium (8.5-10.5) mg/dL Magnesium (1.7-2.3) mg/dL Total Bilirubin (0.15-1.2) mg/dL AST (0-32) U/L ALT (0-33) U/L Alkaline Phosphata se (35-105) IU/L C-Reactive Protein (0.0-4.9) mg/L Total Protein (6.6-8.7) g/dL Albumin (3.5-5.2) g/dL Globulin (1.3-4.6) g/dL Lipase (13-60) U/L Procalcitonin (0-0.5) ng/mL Ethyl Alcohol (0-10) mg/dL Blood Type Rho(D) Type Antibody Screen Discharge Plan Discharge Admit Provider: Mary Grace Jasso Coding Level of Care Code ED Student Assistance Counselor for Chg Fwd Exam Expanded Problem Focused
[2021-01-12] MEDS: potassium chloride ER 20 mEq Tablet 40 MEQ PO (04:50)
[2021-01-12] MEDS: metroNIDAZOLE IV 500 MG/100 ML PREMIX 100 MG IV ×3 (06:35→23:21)
--- NOTE | 2021-01-12 09:01 | CTR_ITS ---
PROCEDURE INFORMATION: Exam: CTA Chest With Contrast Exam date and time: 01/12/2021 9:01 AM Age: 55 years old Clinical indication: Shortness of breath; Patient HX: Livers mets w unk primary C/O SOB TECHNIQUE: Imaging protocol: Computed tomographic angiography of the chest with contrast. 3D rendering (Not supervised by radiologist): MIP and/or 3D reconstructed images were created by the technologist. Radiation optimization: All CT scans at this facility use at least one of these dose optimization techniques: automated exposure control; mA and/or kV adjustment per patient size (includes targeted exams where dose is matched to clinical indication); or iterative reconstruction. Contrast material: OMNI 350; Contrast volume: 66 ml; Contrast route: INTRAVENOUS (IV); COMPARISON: CT abdomen pelvis w con* [id number] 01/12/2021 3:14 AM RADIATION DOSE METRICS: Total DLP (mGy-cm): 507.25 FINDINGS: Limitations: Multiple linear streak artifacts/beam hardening artifacts are present, overlying the central pulmonary arteries. Pulmonary arteries: Pulmonary arteries are well opacified. Pulmonary arteries are normal in caliber. No filling defects are demonstrated. No evidence of pulmonary embolism. Aorta: Mild atherosclerosis of the thoracic aorta. No aortic aneurysm or dissection. Lungs: Changes of centrilobular emphysema demonstrated. Noncalcified 4 mm right lower lobe pulmonary nodule, series 2, image 217. 4 mm nodule right lower lobe image 283. 3 mm nodule right upper lobe, image 282. 5 mm nodule right lower lobe image 303. 7 mm left lower lobe nodule, image 368. 4 mm nodule left upper lobe image 208. 4 mm nodule anterior left upper lobe image 139. No consolidative pulmonary infiltrates are noted. Mild dependent atelectasis at the right lung base. Pleural spaces: No pleural effusion or pneumothorax noted. Heart: No cardiomegaly. No pericardial effusion. Lymph nodes: Unremarkable. No enlarged lymph nodes. Liver: Innumerable, partially calcified low-density masses throughout the included portion of the liver, consistent with metastatic disease. Small amount of perihepatic ascites noted. Bones/joints: No fracture or other acute osseous abnormality. Soft tissues: The soft tissues appear unremarkable. CT/CT angio chest PE protcl [id number] IMPRESSION: 1. Multiple linear streak artifacts/beam hardening artifacts are present, overlying the central pulmonary arteries. 2. No evidence of pulmonary embolism. 3. Mild atherosclerosis of the thoracic aorta. No aortic aneurysm or dissection. 4. There are multiple noncalcified bilateral pulmonary nodules up to 7 mm in diameter, suspicious for pulmonary metastases. 5. Innumerable, partially calcified low-density masses throughout the included portion of the liver, consistent with metastatic disease. Small amount of perihepatic ascites noted. Radiation Dose CTDIVOL = (mGy): DLP = 507.25 (mGy-cm)
--- NOTE | 2021-01-12 09:01 | CTR_ITS ---
PROCEDURE INFORMATION: Exam: CT Head Without Contrast Exam date and time: 01/12/2021 9:01 AM Age: 55 years old Clinical indication: Patient HX: Liver mets unk primary C/O chronic dizziness; Additional info: Metastatic lesion in liver, and pelvis, primary unknown TECHNIQUE: Imaging protocol: Computed tomography of the head without contrast. Radiation optimization: All CT scans at this facility use at least one of these dose optimization techniques: automated exposure control; mA and/or kV adjustment per patient size (includes targeted exams where dose is matched to clinical indication); or iterative reconstruction. COMPARISON: No relevant prior studies available. RADIATION DOSE METRICS: Total DLP (mGy-cm): 836.56 FINDINGS: Brain: Mild cortical volume loss. Mild hypodensities in supratentorial periventricular and subcortical white matter, consistent with microangiopathy. No intracranial hemorrhage. Cerebral ventricles: No ventriculomegaly. Paranasal sinuses: Visualized sinuses are unremarkable. No fluid levels. Mastoid air cells: Visualized mastoid air cells are well aerated. Vasculature: No hyperdense artery. Bones/joints: Unremarkable. No acute fracture. Soft tissues: Unremarkable. CT/CT head wo con* [id number] IMPRESSION: 1. No acute intracranial abnormality. Radiation Dose CTDIVOL = (mGy): DLP = 836.56 (mGy-cm)
--- NOTE | 2021-01-12 09:06 | USCV_ITS ---
Edith Medina Age: 55 Gender: F : 1965 Exam Date: 01/12/2021 10:38 Ordering Phys: Oscar Knutson MD Technologist: Jailyn Bray Exam Location: [facility] [place]_ Indication: Calf pain HISTORY: Lower extremity pain. PROCEDURES: Comparison: none available. Venous duplex imaging was performed in bilateral lower extremities. The following venous structures were evaluated: common femoral vein, profunda vein, proximal portion of the greater saphenous vein, superficial femoral vein, and the popliteal vein. In addition, the posterior tibial and peroneal trunk were evaluated. Serial compression, augmentation maneuvers, and spectral Doppler flow evaluation were performed. FINDINGS: No evidence of DVT seen in any vessel visualized at this time. The veins were found to be easily compressible with spontaneous blood flow. Non pulsatile flow pattern. CONCLUSIONS No evidence of DVT in the above-mentioned identifiable veins. Dr Holly Bruce MD FAC (Electronically Signed) Final Date: 12 January 2021 14:45 S
[2021-01-12] MEDS: dextrose 5%-ns + KCl 20 20 MEQ/1,000 ML BAG 100 MEQ IV ×2 (09:55→21:06)
[2021-01-12] MEDS: pantoprazole 40 mg SDV IVP ×2 (10:08→21:07)
[2021-01-12] MEDS: aspirin 81 mg EC Tablet PO (10:09)
[2021-01-12] MEDS: ciprofloxacin 400 MG/200 ML PREMIX 200 MG IV ×2 (10:10→21:31)
[2021-01-12 10:11] LABS: Reticulocyte % 1.5 % (0.5-2.0)
[2021-01-12 10:31] LABS: Iron 6 ug/dL (37-145)
[2021-01-12 10:32] LABS: INR 1.04 (0.8-1.2)
[2021-01-12 10:42] LABS: CA 125 62.5 U/mL (0-35); Ferritin 86 ng/mL (15-150); Iron 8 ug/dL (37-145); NT Pro B Type Natriuretic Pept 2576 pg/mL (0-125); Percent Saturation 2.6 % (20-50); Thyroid Stimulating Hormone 6.05 uIU/mL (0.27-4.20); Total Iron Binding Capacity 303 mcg/dl; Unsaturated Iron Binding 295 ug/dL (112-347)
--- NOTE | 2021-01-12 11:14 | P.HP_ITS ---
Providers/Chief Complaint Admitting Physician: Mary Grace Jasso MD Primary Care Provider: Luna Arevalo MD Chief Complaint: Stomach Ache History of Present Illness Edith Medina is a 55 year old female with no reported past medical history, who presents to [facility] after leaving AGAINST MEDICAL ADVICE a few days ago, for lower abdominal pain, and feeling unwell. Patient was here on 01/08/2021, was found to have metastatic radiographic lesions in her liver, in the right side of her pelvis, also suspected metastatic nodules in both lungs, she is markedly anemic, hemoglobin 5, she received 2 units PRBC, she had thrombocytosis, however patient declined any discussions about her radiographic findings and left AGAINST MEDICAL ADVICE. Patient presents again, with c omplaints of lower abdominal pain, her last bowel movement was over 48 hours ago, no fevers, no chills, no cough, she is a smoker, no history of COPD, no known exposure to COVID-19, no diarrhea, abdominal pain is not in the lower abdomen, no dysuria, no hematuria, no flank pain, no nausea, no vomiting, no lightheaded, dizziness, no hematemesis, no hemoptysis, no bloody or black stools. Patient denies a history of breast cancer, no breast lumps or bumps, denies history of ovarian cancer, status post hysterectomy, she is a smoker, she had a hysterectomy, she also had a subtotal colectomy for a nodule that was found in the colon, which was in [facility], told to be benign. In the emergency room patient was found to have an ileus, with enteritis, she was kept n.p.o., received fluids, received antibiotic treatment, when I saw patient she was on CSU. Patient was complaining of lower abdominal pain, no nausea, no vomiting, she understands the importance of staying here in the hospital and have a full evaluation for her radiographic evidence of malignancy. I advised against leaving AGAINST MEDICAL ADVICE, the morbidity and mortality associated, she voiced understanding, all questions answered. Review of Systems Const: Reports: fatigue; Denies: fever(s) or malaise Card: Denies: chest pain or edema Resp: Reports: dyspnea and non-productive cough GI: Reports: abdominal pain; Denies: nausea, vomiting, hematemesis, coffee ground emesis, dysphagia, early satiety, diarrhea, constipation, hematochezia or melena : Denies: flank pain, difficulty voiding, dysuria or urinary frequency Musc: Denies: neck pain or back pain Skin/Breast: Denies: rash Neuro: Denies: headache(s) Endo: Denies: polyuria or polydipsia Carlos/Lymph: Denies: enlarged lymph nodes Medications/Allergies Home Medications Medication Instructions Recorded Confirmed Last Taken Type ibuprofen 400 mg PO DAILY PRN 01/08/21 01/12/21 Unknown History Allergies Allergy/AdvReac Type Severity Reaction Status Date / Time No Known Allergies Allergy Verified 01/08/21 13:53 PFSH Acute PFSH: Medical History (Updated 01/12/21 @ 11:25 by Oscar Knutson MD) No pertinent past medical history Surgical History (Updated 01/08/21 @ 22:41 by Abdirahman Lima MD) History of appendectomy History of hysterectomy Family History (Updated 01/12/21 @ 11:20 by Oscar Knutson MD) Other Diabetes Hypertension Social History (Updated 01/12/21 @ 11:20 by Oscar Knutson MD) Smoking and tobacco status: current every day smoker Alcohol intake: current Alcohol intake frequency: 0-2 Drinks per Day Substance/Drug Use: never Vitals/I&O/Wt Last Vital Signs Temp 98.2 F 01/12/21 07:32 Pulse 98 01/12/21 07:32 Resp 20 H 01/12/21 07:32 BP 99/72 01/12/21 07:32 Pulse Ox 96 01/12/21 07:32 01/11/21 01/12/21 01/12/21 22:59 06:59 14:59 Intake Total 1000 / 1000 Balance 1000 / 1000 Weight last 48 hrs Weight 56.824 kg Physical Exam Const: COMMON NORMALS: no acute distress and patient oriented x3 HENMT: COMMON NORMALS: normocephalic HEAD & SCALP: normocephalic Eye: COMMON NORMALS: Equal, round and reactive pupils present GENERAL EYE: appearance normal, both eyes and all related structures PUPIL: Yes Equal, round and reactive pupils present Neck/C-Spine: COMMON NORMALS: no lymphadenopathy THYROID: Thyroid normal Resp: COMMON NORMALS: normal respiratory effort, No retractions, No use of accessory muscles and clear to auscultation bilaterally AUSCULTATION: clear to auscultation bilaterally Cardio: COMMON NORMALS: regular rate, regular rhythm, S1 normal heart sound present, S2 normal heart sound present and No murmurs present (Cardio) RATE: regular rate RHYTHM: regular rhythm HEART SOUNDS: S1 normal heart sound present and S2 normal heart sound present GI: COMMON NORMALS: Soft to palpation INSPECTION: Yes normal to inspection AUSCULTATION: Yes Hypoactive bowel sounds present PALPATION: Yes Tenderness to palpation present (GI) Details: LLQ, RLQ, LUQ and RUQ, No Guarding due to palpation present (GI) and No Rigid due to palpation Extremity: COMMON NORMALS: no pedal edema Neuro: COMMON NORMALS: patient oriented x3 and CN's II-XII intact bilaterally Psych: COMMON NORMALS: mental status grossly normal, Normal thought process present and cooperative THOUGHT PROCESS: Normal thought process present Data : 01/12/21 02:13 01/12/21 02:13 Micro: Microbiology 01/12/21 02:22 Blood Culture - Preliminary Blood SPECIMEN COLLECTED A&P Assessment and plan (1) Malignant neoplasm metastatic to liver with unknown primary site: -CT scan of the abdomen pelvis shows: -Innumerable previously enhancing lesions in both hepatic lobes most consistent with metastatic disease. Largest lesion right hepatic lobe measures approximately 9.5 x 6.6 cm. -Prominent lymph nodes in the torito hepatis. - Suspected metastatic nodules in both lung bases the largest measuring 8 mm left lower lobe laterally. -Stable to minimal enlargement of metastatic deposit in the right side of the pelvis. -Primary is unknown -She is a smoker, has history of COPD -She does have a history of subtotal colectomy, for a nodular-like mass in her colon, which was found to be benign Plan: -CT angiogram of the chest as she has complaints of shortness of breath -CT of the head -Hemoccult stool -After further work-up, will discuss with interventional radiology about the best biopsy site -DNR/DNI -SCDs for DVT prophylaxis, currently on aspirin, pharmacologic contraindicated given anemia Status: Acute (2) Ileus: -N.p.o. -IV fluids -Pain control -Monitor electrolytes Status: Acute (3) Hyponatremia: -Likely secondary to dehydration -Continue IV fluids -However SIADH is certainly a possibility, will recheck sodium tomorrow, if serum sodium does not improve, then will do further work-up Status: Acute (4) Enteritis: -Chronic on Cipro and Flagyl Status: Acute (5) Iron deficiency anemia: -Has iron deficiency anemia -Hemoglobin is 9 -Certainly related to malignancy as above -However cannot rule out underlying GI bleed, start Protonix 40 IV twice daily, with Carafate, will monitor hemoglobin, Hemoccult stool -Currently no complaint of blood black stool, no hemodynamic compromise -Depending on work-up as above, she might require EGD and colonoscopy Status: Acute (6) Thrombocytosis: -Likely reactive thrombocytosis from malignancy, dehydration, enteritis -Currently on aspirin -Monitor for thrombosis Status: Acute (7) Alcohol abuse: -[facility] protocol Status: Acute Attestations Medical Necessity Statement*: Patient requires hospitalization, inpatient, greater than 2 minutes, for metastatic malignancy to liver, lung, right pelvis with unknown primary site, with enteritis, ileus, hyponatremia, anemia, thrombocytosis Coding Level of Care Code Acute Transportation Department Supervisor for [facility] Fwd Diagnoses Malignant neoplasm metastatic to liver with unknown primary site C78.7; C80.1 Ileus K56.7 Hyponatremia E87.1 Enteritis K52.9 Iron deficiency anemia D50.9 Thrombocytosis D47.3 Alcohol abuse F10.10
--- NOTE | 2021-01-12 12:00 | PC.NURSE ---
Patient's friend delivered suitcase to ER weekend receptionist. UC retrieved suitcase and left unopened with patient.
[2021-01-12] MEDS: morphine 4 mg/mL SDV 1 mL 2 MG IVP ×3 (12:13→21:06)
[2021-01-12 13:27] LABS: LAB Peripheral Smear Sent for Review
--- NOTE | 2021-01-12 13:50 | PC.NURSE ---
Admit Note Patient admitted to [[facility]] from [ER] via [carrier]. Covering service notified. Patient presents with [abdominal pain]. Orders reviewed & will continue to monitor. Patient and/or medical collections representative oriented to environment, equipment, and informed of the following as found in the admission booklet: patient rights & responsibilities, visitor policy, hand and respiratory hygiene practice. Other education includes: [oxygen safety, telemetry monitoring pain management options]. Patient and/or medical collections representative [states understanding].
[2021-01-12 16:55] LABS: Bacteria Urine TRACE /hpf; Bilirubin Urine Neg (Negative); Blood Urine Neg (Negative); Glucose Urine UA Norm (Normal); Ketones Urine Negative (Negative); Leukocyte Esterase Urine Negative (Negative); Mucus Urine TRACE /hpf; Nitrate Urine Negative (Negative); Protein Urine 1+ (Negative); Specific Gravity, Urine 1.005 (1.005-1.030); Squamous Epithelial Cell Urine 15-25 /hpf (0-5); Urine Appearance SL Hazy (CLEAR); Urine Color Dark Yellow (Yellow); Urobilinogen Urine Norm (Negative); WBC Urine RARE /hpf (0-5); pH Urine 5 (5-7)
[2021-01-12 16:56] LABS: Add Urine Culture? No
[2021-01-12 16:57] LABS: Amphetamines Screen Urine Negative (Negative); Barbiturates Screen Urine Negative (Negative); Benzodiazepines Screen Urine Negative (Negative); Cocaine Screen Urine Negative (Negative); Opiate Screen Urine Positive (Negative); PCP Screen Urine Negative (Negative); THC Screen Urine Negative (Negative)
[2021-01-12] MEDS: iohexol 350 mg/mL 100 mL Btl IV (18:49)
--- NOTE | 2021-01-12 19:40 | PC.NURSE ---
Shift Note Frequent safety and comfort rounds continue. Orders and/or nursing care completed as indicated. Patient monitored for response to intervention and treatment(pain medication). Education provided includes[morphine, IVFs, telemetry]. Patient and/or entry level sales representative [states understanding]. Will continue to monitor.
--- NOTE | 2021-01-12 20:47 | PC.NURSE ---
Patient arrived to [facility] floor at 2009. Patient complains of abdominal discomfort. Physical assessment compleat. Vitals WNL will continue to monitor.
[2021-01-13] VITALS (9 sets, daily range): BP systolic 130–168; BP diastolic 65–86; PULSE 104–120; RESP 15–18; TEMP 37.1–37.9; O2SAT 90–92
[2021-01-13] MEDS: morphine 4 mg/mL SDV 1 mL 2 MG IVP ×2 (03:56→09:00)
[2021-01-13 05:33] LABS: Basophils # 0.1 10^3/uL (0.0-0.1); Basophils % 0.4 %; Eosinophils # 0.1 10^3/uL (0.0-0.8); Eosinophils % 0.4 %; Hematocrit 27.6 % (37.0-47.0); Hemoglobin 7.5 g/dL (11.5-15.3); Lymphocytes # 0.5 10^3/uL (0.8-4.8); Lymphocytes % 3.2 %; Mean Corpuscular HGB Conc 27.2 g/dL (30.0-36.0); Mean Corpuscular Hemoglobin 21.8 pg (28.0-34.0); Mean Corpuscular Volume 80.2 fl (81-99); Mean Platelet Volume 8.3 fL (7.4-10.4); Monocytes # 1.3 10^3/uL (0.2-0.9); Monocytes % 8.3 %; Neutrophils # 13.89 10^3/uL (1.8-7.7); Neutrophils % 86.8 %; Nucleated Red Blood Cells % 0 %; Platelet Count 753 10^3/cmm (130-400); Red Blood Count 3.44 10^6/uL (4.1-5.3); Red Cell Distribution Width 21.2 % (12.1-15.1)
[2021-01-13 05:45] LABS: INR 1.15 (0.8-1.2)
[2021-01-13] MEDS: metroNIDAZOLE IV 500 MG/100 ML PREMIX 100 MG IV ×3 (05:55→21:33)
[2021-01-13 05:56] LABS: Alanine Aminotransferase 17 U/L (0-33); Albumin Level 2.9 g/dL (3.5-5.2); Alkaline Phosphatase 313 IU/L (35-105); Anion Gap 14.5 (5-19); Aspartate Amino Transferase 45 U/L (0-32); Blood Urea Nitrogen 16 mg/dL (6-20); Calcium 8.8 mg/dL (8.5-10.5); Carbon Dioxide 25 mmol/L (22-29); Chloride 98 mmol/L (98-107); Globulin 3.6 g/dL (1.3-4.6); Glomerular Filtration Rate 127.6 mL/min (90-130); Glucose 94 mg/dL (65-115); Magnesium 1.9 mg/dL (1.7-2.3); Osmolality Calculated 277 mOsm/kg (285-295); Phosphorus 3.4 mg/dL (2.5-4.5); Potassium 4.5 mmol/L (3.5-5.1); Sodium 133 mmol/L (136-145); Total Bilirubin 0.4 mg/dL (0.15-1.2); Total Protein 6.5 g/dL (6.6-8.7)
[2021-01-13 05:59] LABS: Lactate (Lactic Acid level) 1.1 mmol/L (0.5-2.2)
--- NOTE | 2021-01-13 06:00 | XRR_ITS ---
PROCEDURE INFORMATION: Exam: XR Abdomen Exam date and time: 01/13/2021 6:00 AM Age: 55 years old Clinical indication: Condition or disease; Intestinal condition; Other: Abdominal ileus TECHNIQUE: Imaging protocol: XR of the abdomen. Views: Frontal supine view of the abdomen. 1 View. Total images: 1 COMPARISON: CT abdomen pelvis w con* [id number] 01/12/2021 3:14 AM FINDINGS: Gastrointestinal tract: Bowel gas pattern is mildly distended but nonobstructive. Organs: Urinary contrast material present at the time of imaging. Prominent liver shadow. Vasculature: Incidental phleboliths noted. Bones/joints: Osseous structures are unchanged from the prior exam. Other findings: Moderate stool burden. XR/XR KUB portable [id number] IMPRESSION: 1. Bowel gas pattern is mildly distended but nonobstructive. 2. Moderate stool burden.
[2021-01-13 06:10] LABS: NT Pro B Type Natriuretic Pept 1505 pg/mL (0-125); Procalcitonin 1.79 ng/mL (0-0.5)
[2021-01-13] MEDS: dextrose 5%-ns + KCl 20 20 MEQ/1,000 ML BAG 100 MEQ IV (06:16)
[2021-01-13 06:21] LABS: Creatine Phosphokinase 158 U/L (26-192); Ferritin 175 ng/mL (15-150)
[2021-01-13 06:33] LABS: C Reactive Protein 408.5 mg/L (0.0-4.9)
[2021-01-13] MEDS: thiamine 100 mg Tablet PO (08:47)
[2021-01-13] MEDS: pantoprazole 40 mg SDV IVP ×2 (08:47→20:15)
[2021-01-13] MEDS: multivitamin therapeutic Tablet 1 TAB PO (08:47)
[2021-01-13] MEDS: ciprofloxacin 400 MG/200 ML PREMIX 200 MG IV ×2 (08:47→20:13)
[2021-01-13] MEDS: folic acid 1 mg Tablet PO (08:47)
--- NOTE | 2021-01-13 09:52 | PC.CHAP ---
Pastoral Care Encounter/Spiritual Assessment Type of Contact [] Declined electrician substation visit [] Patient/Family/Request visit [] Outpatient visit [] Follow-up visit [] Physician referral [] Code/Alert [x] Routine visit [] Staff referral [] Actively dying [] Patient sleeping [] Family support [] [] Out of room [] Palliative care [] [] Receiving care in room [] Pre-surgical visit [] Trauma [] Long length of stay [] ICU visit [] Other: Relational/Emotional Strength [] Patient feels connected with others/family/visitors/staff []x Distress [] Loneliness/isolation [] Abandonment Spirituality of Patient [x] Person of Jaqueline [] Attends Amish of their Jaqueline [x] Believes in Prayer [] Reads Bible or Episcopal materials [] There are Spiritual issues to be addressed Commercial Housekeeper Interventions [x] Prayer [] Active listening [] Non-anxious presence [] Spiritual/emotional support [] Crisis/trauma care [] Spiritual counseling [] Bereavement support [] Provided bereavement packet [] Provided Bible/devotional materials [] Provided toy/stuffed animal, coloring book to patient or family member [] Provided Communion [] Anointing/Musella [] Salvation [x] Completed spiritual assessment [] Other: Impact on Illness or Injury [] Angry [x] Fearful [] Anxious [] Often cries [] Exhaustion [] Unable to work [] Unable to attend orthodox [] Unable to walk/stand [] Unable to read [] Unable to drive [] Unable to eat/drink [] Unable to sleep [] Unable to be with family [] Patient intubated [] Other: Summary Time spent with patient 10 minm
--- NOTE | 2021-01-13 12:23 | PM.PN ---
Subjective Subjective: Interval history: Edith reports she feels little bit better. Is passing gas. Wants to try to drink a little bit. Not nauseous. Reports she had a bowel movement. Medications: Reviewed: Yes Vitals/I&O/Wt Last Vital Signs Temp 99.5 F 01/13/21 08:00 Pulse 105 H 01/13/21 08:00 Resp 16 01/13/21 09:00 BP 143/65 01/13/21 08:00 Pulse Ox 92 01/13/21 08:00 01/12/21 01/13/21 01/13/21 22:59 06:59 14:59 Intake Total 1500 / 1500 1200 / 2700 200 / 200 Balance 1500 / 1500 1200 / 2700 200 / 200 Weight last 48 hrs Weight 56.699 kg Weight 56.824 kg Physical Exam Narrative: EXAM NARRATIVE: General exam no apparent distress Neck is supple no lymphadenopathy thyromegaly Cardiovascular regular rate and rhythm, borderline tachycardic, no murmur Lungs clear Abdomen slight tenderness. Positive bowel sounds. exam is deferred Extremities no cyanosis clubbing or edema, cap refill brisk Data : 01/13/21 05:17 01/13/21 05:17 Micro: Microbiology 01/12/21 02:22 Blood Culture - Preliminary Blood NEGATIVE TO DATE A&P Assessment and plan (1) Malignant neoplasm metastatic to liver with unknown primary site: Suspicious for colon cancer with metastasis Patient reports previous colectomy for nodular mass in: 12 years ago. Reports no colonoscopy since then. CT indicates possible pulmonic spread as well, with enlarged lymph nodes noted in the abdomen. Easiest site to reach is multiple liver nodules/masses. I have reached out to oncology as well as interventional radiology. Planning for ultrasound-guided liver biopsy of an area of metastasis on Wednesday. Will hold aspirin. CTA performed secondary to shortness of breath, no pulmonary embolism. CT head no mass. Venous duplex no DVT. KUB this morning no evidence of obstruction Initiate clear liquids, possibly advance to full liquids later today. Add hydrocodone for pain Discussed possibility of colonoscopy but at this point patient wants to avoid. Status: Acute (2) Ileus: Clinically resolving Status: Acute (3) Hyponatremia: Resolving Reduce fluids Status: Acute (4) Enteritis: Continue Cipro and Flagyl C. difficile toxin, stool culture Status: Acute (5) Iron deficiency anemia: Iron deficiency anemia, likely related to malignancy Continue Protonix Await stool Hemoccult Iron transfusion Status: Acute (6) Thrombocytosis: Reactive Status: Acute (7) Alcohol abuse: [facility] protocol Status: Acute Attestations Medical Necessity Statement*: Needs continued hospitalization for IV antibiotics for enteritis while diet is increased. Will also need liver biopsy for work-up of probable metastatic malignancy Coding Level of Care Code Acute Planting Material Unloader for [facility] Fwd Diagnoses Malignant neoplasm metastatic to liver with unknown primary site C78.7; C80.1 Ileus K56.7 Hyponatremia E87.1 Enteritis K52.9 Iron deficiency anemia D50.9 Thrombocytosis D47.3 Alcohol abuse F10.10
[2021-01-13] MEDS: dextrose 5%-ns + KCl 20 20 MEQ/1,000 ML BAG 50 MEQ IV (17:46)
--- NOTE | 2021-01-13 19:31 | PC.NURSE ---
Patient refuses to wear tele. She states the doctor is the one that took it off and I don't need it.
[2021-01-14] VITALS (8 sets, daily range): BP systolic 148–164; BP diastolic 79–93; PULSE 70–108; RESP 12–18; TEMP 36.6–37.4; O2SAT 90–94
[2021-01-14] MEDS: morphine 4 mg/mL SDV 1 mL 2 MG IVP (03:56)
[2021-01-14 04:20] LABS: Basophils # 0.1 10^3/uL (0.0-0.1); Basophils % 0.3 %; Eosinophils # 0.1 10^3/uL (0.0-0.8); Eosinophils % 0.3 %; Hematocrit 28.5 % (37.0-47.0); Hemoglobin 7.6 g/dL (11.5-15.3); Lymphocytes # 0.8 10^3/uL (0.8-4.8); Lymphocytes % 3.4 %; Mean Corpuscular HGB Conc 26.7 g/dL (30.0-36.0); Mean Corpuscular Hemoglobin 21.5 pg (28.0-34.0); Mean Corpuscular Volume 80.7 fl (81-99); Mean Platelet Volume 8.6 fL (7.4-10.4); Monocytes # 1.8 10^3/uL (0.2-0.9); Monocytes % 7.8 %; Neutrophils # 20.39 10^3/uL (1.8-7.7); Nucleated Red Blood Cells % 0 %; Platelet Count 842 10^3/cmm (130-400); Red Blood Count 3.53 10^6/uL (4.1-5.3); Red Cell Distribution Width 21.1 % (12.1-15.1); White Blood Count 23.4 10^3/uL (4.0-10.0)
[2021-01-14 04:51] LABS: Alanine Aminotransferase 14 U/L (0-33); Albumin Level 2.6 g/dL (3.5-5.2); Alkaline Phosphatase 330 IU/L (35-105); Anion Gap 15.4 (5-19); Aspartate Amino Transferase 36 U/L (0-32); Blood Urea Nitrogen 11 mg/dL (6-20); Calcium 8.7 mg/dL (8.5-10.5); Carbon Dioxide 23 mmol/L (22-29); Chloride 96 mmol/L (98-107); Globulin 3.9 g/dL (1.3-4.6); Glomerular Filtration Rate 165.1 mL/min (90-130); Glucose 105 mg/dL (65-115); Magnesium 1.9 mg/dL (1.7-2.3); Osmolality Calculated 270 mOsm/kg (285-295); Potassium 4.4 mmol/L (3.5-5.1); Sodium 130 mmol/L (136-145); Total Bilirubin 0.6 mg/dL (0.15-1.2); Total Protein 6.5 g/dL (6.6-8.7)
[2021-01-14] MEDS: metroNIDAZOLE IV 500 MG/100 ML PREMIX 100 MG IV ×4 (05:52→19:40)
[2021-01-14] MEDS: thiamine 100 mg Tablet PO (07:53)
[2021-01-14] MEDS: pantoprazole 40 mg SDV IVP ×2 (07:53→20:37)
[2021-01-14] MEDS: multivitamin therapeutic Tablet 1 TAB PO (07:53)
[2021-01-14] MEDS: folic acid 1 mg Tablet PO (07:53)
[2021-01-14] MEDS: HYDROcodone-acetaminophen 5-325 mg Tablet 1 TAB PO ×3 (07:53→19:36)
[2021-01-14] MEDS: ciprofloxacin 400 MG/200 ML PREMIX 200 MG IV ×2 (07:54→20:37)
[2021-01-14] MEDS: polyethylene glycol 3350 Pkt 17 gm PO ×2 (09:11→17:26)
[2021-01-14] MEDS: docusate sodium 100 mg Capsule PO ×2 (09:11→17:26)
--- NOTE | 2021-01-14 10:19 | PM.PN ---
Subjective Subjective: Interval history: Edith seemed upset this morning. She states she is still having some abdominal discomfort, below her umbilicus. It is not a lot better, nor is it worse. She wants her antibiotic changed as she has not gotten better as expected. She denies having a bowel movement besides the one yesterday morning. She states it was not diarrhea. It was not retained for testing. She has been tolerating a full liquid diet, with no nausea, worsening of the pain, or vomiting. She said several times during my interview her with her this morning she was thinking about leaving against advice. Her daughter then called during my visit, and this seemed to calm her. I ask if it was okay if I gave her daughter a call to inform her of the testing and the plan and the patient adamantly reported to me at that time she did not want me talking to her daughter. Medications: Reviewed: Yes Vitals/I&O/Wt Last Vital Signs Temp 98.6 F 01/14/21 07:49 Pulse 70 01/14/21 09:15 Resp 18 01/14/21 07:49 BP 150/84 01/14/21 07:49 Pulse Ox 94 01/14/21 09:15 01/13/21 01/14/21 01/14/21 22:59 06:59 14:59 Intake Total 1400 / 1600 660 / 660 Balance 1400 / 1600 660 / 660 Weight last 48 hrs Weight 56.699 kg Physical Exam Narrative: EXAM NARRATIVE: General exam no apparent distress Neck is supple no lymphadenopathy thyromegaly Cardiovascular regular rate and rhythm, borderline tachycardic, no murmur Lungs clear Abdomen slight tenderness. Positive bowel sounds. Tenderness is below the umbilicus bilaterally. Liver is enlarged and irregular. exam is deferred Extremities no cyanosis clubbing or edema, cap refill brisk Data : 01/14/21 03:59 01/14/21 03:59 Micro: Microbiology 01/12/21 16:00 Urine Culture - Final Urine,Voided A&P Assessment and plan (1) Malignant neoplasm metastatic to liver with unknown primary site: Suspicious for colon cancer with metastasis Patient reports previous colectomy for nodular mass in: 12 years ago. Reports no colonoscopy since then. CT indicates possible pulmonic spread as well, with enlarged lymph nodes noted in the abdomen. Easiest site to reach is multiple liver nodules/masses. I have reached out to oncology as well as interventional radiology. Planning for ultrasound-guided liver biopsy of an area of metastasis on Wednesday. Will hold aspirin. CTA performed secondary to shortness of breath, no pulmonary embolism. CT head no mass. Venous duplex no DVT. KUB this morning no evidence of obstruction. Some evidence for constipation Continue full liquids Continue hydrocodone for pain, morphine for breakthrough As no more bowel movements add Colace, MiraLAX. Dulcolax suppository as well. I am hoping treatment of constipation will decrease pain Discussed possibility of colonoscopy but at this point patient wants to avoid. Status: Acute (2) Ileus: Clinically resolving Status: Acute (3) Hyponatremia: Stable Status: Acute (4) Enteritis: Continue Cipro and Flagyl White blood cell count increased. No fever noted. Awaiting stool studies. May be secondary to constipation. She does not have tenderness over her entire abdomen to suggest peritonitis. Ascites was present on CT, but minimal amount not easily accessible. Status: Acute (5) Iron deficiency anemia: Iron deficiency anemia, likely related to malignancy Continue Protonix Await stool Hemoccult Hemoglobin now stable Status: Acute (6) Thrombocytosis: Reactive Status: Acute (7) Alcohol abuse: [facility] protocol Status: Acute Attestations Medical Necessity Statement*: Needs continued hospitalization for treatment of constipation, abdominal discomfort, possible enteritis, and arrangement for biopsy for malignancy. Coding Level of Care Code Acute Bad Cloth Checker for [facility] Fwd Diagnoses Malignant neoplasm metastatic to liver with unknown primary site C78.7; C80.1 Ileus K56.7 Hyponatremia E87.1 Enteritis K52.9 Iron deficiency anemia D50.9 Thrombocytosis D47.3 Alcohol abuse F10.10
[2021-01-14] MEDS: bisacodyl 10 mg Supp PR (15:15)
[2021-01-14] MEDS: dextrose 5%-ns + KCl 20 20 MEQ/1,000 ML BAG 50 MEQ IV (18:09)
[2021-01-15] VITALS (16 sets, daily range): BP systolic 147–172; BP diastolic 84–105; PULSE 83–104; RESP 16–20; TEMP 36.3–37.2; O2SAT 91–100
[2021-01-15] MEDS: metroNIDAZOLE IV 500 MG/100 ML PREMIX 100 MG IV ×2 (01:27→08:24)
[2021-01-15 05:53] LABS: Basophils % 0.1 %; Eosinophils # 0.1 10^3/uL (0.0-0.8); Eosinophils % 0.6 %; Hematocrit 28.7 % (37.0-47.0); Hemoglobin 7.8 g/dL (11.5-15.3); Lymphocytes # 0.7 10^3/uL (0.8-4.8); Mean Corpuscular HGB Conc 27.2 g/dL (30.0-36.0); Mean Corpuscular Hemoglobin 21.8 pg (28.0-34.0); Mean Corpuscular Volume 80.2 fl (81-99); Mean Platelet Volume 8.4 fL (7.4-10.4); Monocytes # 1.9 10^3/uL (0.2-0.9); Monocytes % 8.5 %; Neutrophils # 18.93 10^3/uL (1.8-7.7); Neutrophils % 85.7 %; Nucleated Red Blood Cells % 0 %; Platelet Count 788 10^3/cmm (130-400); Red Blood Count 3.58 10^6/uL (4.1-5.3); Red Cell Distribution Width 20.7 % (12.1-15.1); White Blood Count 22.1 10^3/uL (4.0-10.0)
[2021-01-15 06:16] LABS: Alanine Aminotransferase 15 U/L (0-33); Albumin Level 2.6 g/dL (3.5-5.2); Alkaline Phosphatase 480 IU/L (35-105); Anion Gap 14.8 (5-19); Aspartate Amino Transferase 31 U/L (0-32); Blood Urea Nitrogen 8 mg/dL (6-20); Calcium 8.7 mg/dL (8.5-10.5); Carbon Dioxide 25 mmol/L (22-29); Chloride 93 mmol/L (98-107); Globulin 3.9 g/dL (1.3-4.6); Glomerular Filtration Rate 230.1 mL/min (90-130); Glucose 87 mg/dL (65-115); Magnesium 1.7 mg/dL (1.7-2.3); Osmolality Calculated 266 mOsm/kg (285-295); Potassium 3.8 mmol/L (3.5-5.1); Sodium 129 mmol/L (136-145); Total Protein 6.5 g/dL (6.6-8.7)
[2021-01-15] MEDS: sodium chloride 0.9% 1,000 ML 30 ML IV (06:55)
--- NOTE | 2021-01-15 07:00 | US_ITS ---
WS: [id number] ULTRASOUND-GUIDED LIVER BIOPSY HISTORY: liver masses, metastatic disease to the liver of unknown etiology. Procedure, risks, and complications have been explained to the patient. Consent is obtained. Patient recently diagnosed with C. difficile. This was discussed with the patient and Dr. Gilson holcomb ded to go ahead with the liver biopsy. No ascites is evident. Patient is not complaining of any addit ional abdominal pain. Prior imaging studies are reviewed. Skin is cleansed with ChloraPrep and then anesthetized with 1% buffered lidocaine. Core biopsy is per formed with an 18 gauge Achieve needle. Specimen is placed within formalin. No complications encounte red. US/US biopsy liver [id number] IMPRESSION: Uncomplicated ultrasound-guided liver biopsy of metastatic lesions. Final patho logy results are pending.
[2021-01-15] MEDS: fentaNYL 50 mcg/mL INJ 2mL 25 MCG IVP (07:21)
[2021-01-15] MEDS: midazolam 1 mg/mL INJ 2 mL IVP (07:21)
[2021-01-15] MEDS: polyethylene glycol 3350 Pkt 17 gm PO (08:23)
[2021-01-15] MEDS: pantoprazole 40 mg SDV IVP (08:25)
[2021-01-15] MEDS: docusate sodium 100 mg Capsule PO (08:26)
[2021-01-15] MEDS: multivitamin therapeutic Tablet 1 TAB PO (08:26)
[2021-01-15] MEDS: thiamine 100 mg Tablet PO (08:27)
[2021-01-15] MEDS: folic acid 1 mg Tablet PO (08:27)
[2021-01-15] MEDS: HYDROcodone-acetaminophen 5-325 mg Tablet 1 TAB PO (08:46)
[2021-01-15] MEDS: ciprofloxacin 400 MG/200 ML PREMIX 200 MG IV (09:44)
--- NOTE | 2021-01-15 11:39 | PM.DCS ---
Discharge Providers Date of Admission: 01/12/21 07:18 Date of Discharge: January 15, 2021 Attending Provider at Admission: Mary Grace Jasso MD Attending Provider at Discharge: Eligio Riggins MD Primary Care Provider: Luna Arevalo MD Diagnoses at Discharge Discharge Diagnosis (1) Malignant neoplasm metastatic to liver with unknown primary site: Status: Acute (2) Ileus: Status: Acute (3) Hyponatremia: Status: Acute (4) Enteritis: Status: Acute (5) Iron deficiency anemia: Status: Acute (6) Thrombocytosis: Status: Acute (7) Alcohol abuse: Status: Acute Reason for Visit Reason for Visit: Stomach Ache Hospital Course Hospital Course Edith is a 55-year-old white female who presented to the emergency department with abdominal pain, initially on January 08, and then went AMA. She returned on January 12 with similar complaints. She had been having abdominal pain for quite some time. CT demonstrated what appeared to be metastatic disease to her liver, with some significant disease in the pelvis as well. Concern of nodules in her lungs denoting metastasis as well. Primary not evident on CT. There is also concern of enteritis. She had not had diarrhea. She was placed on Cipro and Flagyl initially until stool studies could be completed. Stool returned C. difficile positive on January 14 and she was changed to vancomycin orally. She also underwent liver biopsy morning of January 15 without complication. I was called up to her room approximately noon on January 15 and she reported she was leaving today. I discussed with her that I would like her to stay for closer monitoring to make sure her white count goes down and she starts to improve from her clinical condition. She informed me she would go AGAINST MEDICAL ADVICE if she was not discharged. I discussed the risks of discharge with her including or permanent disability. She reported she would like to be discharged in any event. I will try to set up appropriate follow-up, appropriate medications. She should return for any worsening. Discharge hemoglobin 7.8. Discharge white blood cell count 22. She was instructed to eat a softer diet, full liquids. At time of discharge she was passing gas, and had a bowel movement night prior. Note that her CEA was markedly elevated at 36,129. Other studies done during hospitalization was a CTA which demonstrated no pulmonary embolism but likely pulmonary mets, head CT showing no acute findings, and abdominal pelvis CT with majority of findings as listed above. Physical Exam Narrative: EXAM NARRATIVE: General exam no apparent distress Neck is supple no lymphadenopathy or thyromegaly Cardiovascular regular rate and rhythm without murmur Lungs clear Abdomen slight distention. Positive bowel sounds. Slight tenderness, mainly below the umbilicus. Extremities no cyanosis clubbing or edema Discharge Data Data Completed and Pending: Completed Studies During Hospitalization Category Date Time Status CT abdomen pelvis w con* [id number] Urge nt Cat Scan 01/12/21 02:[address] angio chest PE protcl [id number] Rout ine Cat Scan 01/12/21 09:[address] head wo con* 7 0450 Routine Cat Scan 01/12/21 09:01 Completed XR KUB portable 7 4018 Routine Exams 01/13/21 06:00 [place] [id number] Routin e Ultrasound 01/12/21 09:06 Completed US biopsy liver 4 7000 Routine Ultrasound 01/15/21 07:00 Completed Pending at discharge Category Date Time Status Blood Culture Sta t Lab 01/12/21 02:14 Results Enteric Bacterial Panel by PCR Rout ine Lab 01/14/21 18:39 Received Pathology: Surgic al [PTH] Routine Pth 01/15/21 07:00 Received Labs from last 24 hours 01/15/21 01/15/21 05:32 05:32 WBC 22.1 H RBC 3.58 L Hgb 7.8 L Hct 28.7 L MCV 80.2 L MCH 21.8 L MCHC 27.2 L RDW 20.7 H Plt Count 788 H MPV 8.4 Neut % (Auto) 85.7 Lymph % (Auto) 3.0 [place] % (Auto) 8.5 Eos % (Auto) 0.6 Baso % (Auto) 0.1 Neut # (Auto) 18.93 H Lymph # (Auto) 0.7 L [place] # (Auto) 1.9 H Eos # (Auto) 0.1 Baso # (Auto) 0.0 Nucleated RBC % (a uto) 0 Nucleated RBCs # 0.0 Sodium 129 L Potassium 3.8 Chloride 93 L Carbon Dioxide 25 Anion Gap 14.8 BUN 8 Creatinine 0.3 L GFR Calculation 230.1 H Glucose 87 Calculated Osmolal ity 266 L Calcium 8.7 Magnesium 1.7 Total Bilirubin 1.0 AST 31 ALT 15 Alkaline Phosphata se 480 H Total Protein 6.5 L Albumin 2.6 L Globulin 3.9 Vitals: Last Vital Signs Temp 98.0 F 01/15/21 10:14 Pulse 95 01/15/21 10:14 Resp 17 01/15/21 10:14 BP 172/91 01/15/21 10:14 Pulse Ox 95 01/15/21 10:14 Discharge Plan Discharge Patient Disposition: Home Condition: Fair Prescriptions: New hydrocodone-acetaminophen 5-325 mg Tablet 1 tab PO Q4H PRN (Reason: Moderate Pain) Qty: 20 RF: 0 pantoprazole [Protonix] 40 mg tablet,delayed release (DR/EC) 40 mg PO DAILY Qty: 30 RF: 0 vancomycin 125 mg capsule 125 mg PO QID 10 Days Qty: 40 RF: 0 Discontinued ibuprofen 200 mg Tablet 400 mg PO DAILY PRN (Reason: Pain) RF: 0 Discharge Orders: Discharge Order (Routine); Ordered 01/15/21 Ordered By: Eligio Riggins Referrals: Segundo Gramajo MD [Hospitalist] - 7-10 days (follow up metastatic disease) Luna Arevalo MD [Primary Care Provider] - 1-3 days (CBC on follow-up) Discharge Diet: Soft Mechanical and Full LIquid Discharge Activity: Increase activity as tolerated Patient Instructions: Opioid Safety Discharge Attestations Time Spent in Discharge Care*: greater than 30 min Quality Metrics Clinical Quality Measures During this hospital stay, did patient experience: None Coding Level of Care Code Acute Chg FW UT note Diagnoses Malignant neoplasm metastatic to liver with unknown primary site C78.7; C80.1 Ileus K56.7 Hyponatremia E87.1 Enteritis K52.9 Iron deficiency anemia D50.9 Thrombocytosis D47.3 Alcohol abuse F10.10
--- NOTE | 2021-01-21 11:09 | PC.SOCIAL ---
discharge hospital phone call made. patient saw Dr. Gramajo and PCP yesterday. Had medications delivered prior to discharge, taking as prescribed.
== END 2021-01-15 13:50 | disposition home or self-care (01) | DRG 436 ==
LOC: ER 02:20 → CSU 09:18 → MEDSURG 20:11
PROVIDERS: Family Medicine; Physician Assistant; Radiology Diagnostic Radiology; Admitting Provider Student in an Organized Health Care Education/Training Program; Emergency Provider Emergency Medicine; PCP Family Medicine; Visit Provider Internal Medicine
DX: C78.7 Secondary malignant neoplasm of liver and intrahepatic bile duct (principal); K56.7 Ileus, unspecified; E87.1 Hypo-osmolality and hyponatremia; F17.200 Nicotine dependence, unspecified, uncomplicated; D47.3 Essential (hemorrhagic) thrombocythemia; K52.9 Noninfective gastroenteritis and colitis, unspecified; E86.0 Dehydration; D50.9 Iron deficiency anemia, unspecified; F10.10 Alcohol abuse, uncomplicated; C80.1 Malignant (primary) neoplasm, unspecified; Y90.1 Blood alcohol level of 20-39 mg/100 ml; Z90.49 Acquired absence of other specified parts of digestive tract; Z90.710 Acquired absence of both cervix and uterus
CPT/HCPCS: 36415; 47000; 51798; 70450; 71275; 74018; 74177; 76942; 80053; 80306; 80307; 80500; 81001; 82274; 82378; 82550; 82728; 83540; 83550; 83605; 83690; 83735; 83880; 84100; 84145; 84443; 85025; 85045; 85610; 85730; 86140; 86301; 86304; 86850; 86900; 87040; 87086; 87493; 87506; 88307; 93970; 94664; 96365; 96372; 96374; 96375; 96376; 99285; C9113; J0744; J1170; J2250; J2270; J2405; J3010; J3370; J3411; J7030; Q9967; S0030

== ENCOUNTER 2021-01-20 12:09 | Outpatient (CLI) | payer MEDICAID, SELFPAY ==
[2021-01-20 14:55] LABS: Alanine Aminotransferase 32 U/L (0-33); Albumin Level 2.6 g/dL (3.5-5.2); Aspartate Amino Transferase 84 U/L (0-32); Blood Urea Nitrogen 7 mg/dL (6-20); Calcium 8.2 mg/dL (8.5-10.5); Carbon Dioxide 24 mmol/L (22-29); Chloride 92 mmol/L (98-107); Globulin 3.6 g/dL (1.3-4.6); Glomerular Filtration Rate 127.6 mL/min (90-130); Glucose 92 mg/dL (65-115); Osmolality Calculated 268 mOsm/kg (285-295); Sodium 130 mmol/L (136-145); Total Bilirubin 6.3 mg/dL (0.15-1.2); Total Protein 6.2 g/dL (6.6-8.7)
[2021-01-20 14:58] LABS: Anion Gap 17.4 (5-19); Potassium 3.4 mmol/L (3.5-5.1)
[2021-01-20 15:05] LABS: Basophils # 0.1 10^3/uL (0.0-0.1); Basophils % 0.3 %; Eosinophils # 0.1 10^3/uL (0.0-0.8); Eosinophils % 0.2 %; Hematocrit 30.1 % (37.0-47.0); Hemoglobin 8.4 g/dL (11.5-15.3); Lymphocytes # 1.3 10^3/uL (0.8-4.8); Lymphocytes % 4.9 %; Mean Corpuscular HGB Conc 27.9 g/dL (30.0-36.0); Mean Corpuscular Hemoglobin 21.8 pg (28.0-34.0); Mean Corpuscular Volume 78.2 fl (81-99); Mean Platelet Volume 8.9 fL (7.4-10.4); Monocytes # 1.3 10^3/uL (0.2-0.9); Monocytes % 4.8 %; Neutrophils # 23.59 10^3/uL (1.8-7.7); Neutrophils % 86.6 %; Nucleated Red Blood Cells % 0 %; Platelet Count 1160 10^3/cmm (130-400); Red Blood Count 3.85 10^6/uL (4.1-5.3); Red Cell Distribution Width 21.7 % (12.1-15.1); White Blood Count 27.2 10^3/uL (4.0-10.0)
[2021-01-20 15:08] LABS: Alkaline Phosphatase 1363 IU/L (35-105)
--- NOTE | 2021-01-20 17:11 | ONC CON_ITS ---
Dr. Gramajo New Patient Note Patient: Edith Medina Unit #: [id number]: 1965 Dicatated By: Segundo Gramajo M.D.Date of Visit: Jan 20, 2021 Onc MED New Patient/Consult Referring Physician: Eligio Riggins M.D. Chief Complaint: Liver metastases. History of Present Illness: This is a 55-year-old woman with metastatic adenocarcinoma involving the liver. On 01/09/2020 when she was admitted to the hospital after presenting to the emergency room with generalized weakness. She was severely anemic with hemoglobin 5.1 g, and her transferrin saturation was found to be low at 2.6%, consistent with iron deficiency. She also was found to have a significantly elevated alkaline phosphatase level at 417/105 U/L. Her CT abdomen/pelvis showed innumerable enhancing lesions involving both hepatic lobes, consistent with metastatic disease. The largest was in the right hepatic lobe measuring 9.5 x 6.6 cm. There were subcentimeter pulmonary nodules bilaterally, 2 were suspicious for metastatic disease. Prominent lymph nodes were noted in the torito hepatis and there was also noted to be thickening of the left adrenal gland. She was transfused PRBCs. A repeat CT abdomen/pelvis on 01/12/2021 showed additional findings of ileus and thickening of multiple loops of small bowel which was thought to be concerning for enteritis. CT pulmonary angiogram showed no evidence of pulmonary emboli. Again noted were multiple noncalcified bilateral pulmonary nodules measuring up to 7 mm, suspicious for pulmonary metastases. Her further laboratory studies showed markedly elevated CEA level at 36,129 ng/mL. The CA 19-9 was 0.600 U/mL and the CA-125 was just slightly elevated at 62.5 U/mL. On 11/15/2020 she underwent ultrasound guided liver biopsy. Pathology does show metastatic adenocarcinoma. Additional pathologic studies are pending. Prior to discharge from the hospital she was found to have a positive stool FIT. A stool test for C. difficile also was positive, and she has been started on oral vancomycin. She is seen now for further management. She is still very weak generally, and her activity is very limited. ECOG score is 3. Appetite is fair. She has been on a restricted diet. Her weight has tended to fluctuate. Recently it has been stable. She does not have fever or night sweats. She has shortness of breath with activity, but she says her breathing is good most of the time. She recently has developed swelling in both legs. She does not complain of chest pain. She has significant pain in the lower abdominal area and she also is having pain in the area of her liver biopsy. She has not had nausea/vomiting. She was having constipation, but bowels have been functioning adequately with Dulcolax. She has not had diarrhea, and she has not been aware of any blood in the stool. She says her urine was dark, but it is okay now. Bladder function has been okay. She has no significant joint or bone pain. She does not complain of headache or dizziness. She has no numbness/paresthesia or other focal neurologic symptoms. Past Medical History: She has not had any previous ongoing medical illnesses. Past Surgical History: Her surgical/procedural history includes Caesarean section, hysterectomy/bilateral salpingectomy-oophorectomy, and right hemicolectomy and appendectomy in 2011. Medications: HYDROcodone-Acetaminophen 1 Tablet (of 5-325 mg) Oral 6x/d PRN, Pantoprazole Sodium 1 Tablet (of 40 mg) Tablet, enteric coated Oral daily, Vancomycin HCl 1 Capsule (of 125 mg) Oral four times a day for 10 days Allergies: No Known Allergies. Social History: Ms. Medina is . She has history of smoking 1 pack of cigarettes daily for 40 years. She quit smoking 2 weeks ago. She also has a long history of heavy alcohol use. She had cut down following her 's in March 2020, and she recently quit drinking. Family History: Her mother is still living and in good health. Father in his early 70s with alcohol related liver disease. Two older sisters are still in good health. Review Of Symptoms: Constitutional - She has had a decline in her energy over at least the past 6 to 12 months, and she now has very limited activity.Appetite is fair. She is on a restricted diet. Her weight fluctuates. Recently it has been stable. She does not have fever or night sweats. ECOG score is 3, Eyes - No change in vision, ENMT - No hearing loss or tinnitus. No sinus congestion/drainage. No mouth sores. No sore throat or difficulty swallowing, Hematologic/Lymphatic - She has easy bruising, Respiratory - She does have some shortness of breath with activity, but her breathing is good most of the time. No cough. No pleuritic pain or hemoptysis, Cardiovascular - No angina pain. No palpitations, Gastrointestinal - She has pain in the lower abdominal area. She has been having pain in the right upper quadrant area since her biopsy. No nausea or vomiting. No heartburn or acid reflux. She has had some constipation. She has not been having diarrhea. No blood in the stool or black stools, Genitourinary (F) - Her urine was dark, but that has been better lately. No dysuria or hematuria. No urinary frequency. No urgency or incontinence, Musculoskeletal - No significant joint or bone pain, Integumentary - No skin rash or other skin changes, Neurologic - No headache or dizziness. No numbness or tingling. No other focal neurologic symptoms, Psychiatric - She is having some anxiety. No depression. She is having difficulty sleeping. Vital Signs: Performed on Jan 20, 2021 13:11: 0, 0, 23.91, 1.64 sq.m, 63 in, 95 % (LOW), 101 /min (HIGH), 18 /min, 146/77 mm(hg) (HIGH), 97.8 F (LOW), and 135 lbs (HIGH). Physical Examination: Constitutional - She appears generally weak, Eyes - Sclera appear mildly icteric. Conjunctivae clear, ENMT - No lesions noted in the oral cavity, Neck - No mass or thyromegaly, Hematologic/Lymphatic - No cervical or clavicular adenopathy, Respiratory - Lungs sound clear with diminished air movement bilaterally, Cardiovascular - Heart rhythm is regular. There is II/ systoic murmur. There is no gallop or rub noted, Breasts - Both breasts have a nodular consistency, but there are no suspicious breast masses noted. There is no axillary adenopathy, Abdomen - Moderately distended. The liver is significantly large and it is tender. Spleen is not palpable. There is no abdominal mass or ascites noted and there is no inguinal adenopathy, Back/Spine - No spine or CVA tenderness noted, Extremities - There is 2+ lower extremity edema. There are scattered purpuric lesions on both arms, Integumentary - No rashes. No suspicious skin lesions noted, Neurologic - No focal neurologic deficits noted. Problem List: 1. Metastatic adenocarcinoma involving the liver. 2. She had severe iron deficiency anemia requiring PRBC transfusion. 3. She has a history of previous right hemicolectomy, estimated in 2011, reportedly for a colonic polyp. This has not been confirmed with records. Problems Addressed with this Encounter and Plan: 1. Patient with metastatic adenocarcinoma involving the liver. A primary source has not been documented, but the findings thus far are suspicious for colonic primary. She does have a history of having undergone right hemicolectomy somewhere around 2011. It was reportedly for benign disease, but we do not have any records to confirm that. She does have confirmed metastatic adenocarcinoma by liver biopsy. Additional pathologic studies are pending. We discussed the fact that her disease is advanced and incurable. She has relatively poor performance status, and she is not going to be a very good candidate for systemic chemotherapy, though with a colon primary she would have a relatively good chance of responding to treatment. Other possible options for therapy, including targeted therapies or immunotherapy, would require additional pathologic studies, occluding next generation sequencing, MSI studies, and PD-L1 expression. Overall, though, based on the advanced stage of her disease and her marginal performance status, she does appear to have very poor prognosis. As she is still having significant abdominal pain, she will be given a prescription for immediate release oxycodone to take as needed. She will have a repeat CBC and CMP today. Depending on those results and the IHC studies from pathology, it may actually be best to transition her to hospice. 2. She had severe iron deficiency anemia at presentation. Her stool FIT was positive, consistent with GI blood loss. She may still require additional PRBC transfusion and or parenteral iron replacement. Signed By: Segundo Gramajo M.D. <<Signature on File>>
== END 2021-01-20 12:10 | disposition home or self-care (01) ==
PROVIDERS: PCP Family Medicine; Visit Provider Internal Medicine Medical Oncology
DX: C78.7 Secondary malignant neoplasm of liver and intrahepatic bile duct (principal); C80.1 Malignant (primary) neoplasm, unspecified; D50.9 Iron deficiency anemia, unspecified
CPT/HCPCS: 36415; 80053; 85025; 99205